=== PATIENT | female | born 1950 | race Caucasian/White ===

== ENCOUNTER → 2017-03-10 | Outpatient (CLI) | payer OTHER ==
[~2017-03-10] MED LIST: ADVIN25/60 INH; ALBU1AER9 INH; CALCTAB5 PO; CHOL100010 PO; OMEP40CA41 PO; PYRI60TA2 PO; RBN1 PO
[2017-03-10 09:54] LABS: CHOLESTEROL/HDL RATIO 2.7
--- NOTE | 2017-03-16 13:56 | CODING QUERY MEDICAL NECESSITY ---
CQSUPPORTING DIAGNOSIS NEEDED A supporting diagnosis is required for the test/procedure performed on this patient in order for us to be reimbursed by the patient's insurance. Please provide a supporting diagnosis for the following test/procedure listed below next to the test name along with your signature. *If there is no additional diagnosis for this patient that would support the following test/procedure please document that below next to the test/procedure. Test(s)/Procedure(s) that require a supporting diagnosis: JAYLENE 03/10/17 BLOOD GLUCOSE TEST Provider Signature: Date: Thank you Savannah Ceja Health Information Management Once completed, please kindly fax back to [phone] For questions please call [phone]
== END | disposition home or self-care (01) ==
LOC: C.LAB1850 08:08
PROVIDERS: ATTEND Family Medicine
DX: Z13.220 Encounter for screening for lipoid disorders (principal); Z12.31 Encounter for screening mammogram for malignant neoplasm of breast

== ENCOUNTER → 2017-07-13 | Outpatient (CLI) | payer OTHER ==
--- NOTE | 2017-07-13 15:52 | MAMMOGRAPHY REPORT ---
BILATERAL DIGITAL SCREENING MAMMOGRAM WITH CAD: 07/13/2017 CLINICAL HISTORY: Routine screening. Patient has no complaints. TECHNIQUE: Bilateral CC and MLO views were obtained. Current study was also evaluated with a Comput er Aided Detection (CAD) system. COMPARISON: Comparison is made to exams dated: 07/10/2016 mammogram, 07/04/2015 mammogram, 02/16/2014 gary mogram, 01/29/2012 mammogram, and 12/19/2010 mammogram - [facility]. BREAST COMPOSITION: The tissue of both breasts is heterogeneously dense, which may obscure small mas ses. FINDINGS: There is a benign coarse calcification in the left breast. A 12 mm focal asymmetry in the upper outer quadrant of the left breast is stable in size and appearance dating back to at least 01/2007, therefore likely benign. No new suspicious mass, architectural distortion or cluster of micr ocalcifications is seen. IMPRESSION: ACR BI-RADS CATEGORY 2: BENIGN There is no mammographic evidence of malignancy. A 1 year screening mammogram is recommended. The pa tient will receive written notification of the results. Approximately 10% of breast cancers are not detected with mammography. A negative mammographic report should not delay biopsy if a clinically suggestive mass is present. Gretel Danielson M.D. ay/:07/13/2017 14:59:33 Histology Manager: Tana Gibbs, [facility] letter sent: Normal 1/2 BI-RADS Code: ACR BI-RADS Category 2: Benign
== END | disposition home or self-care (01) ==
LOC: C.MAMM 14:08
PROVIDERS: ATTEND Family Medicine
DX: Z12.31 Encounter for screening mammogram for malignant neoplasm of breast (principal)

== ENCOUNTER → 2017-07-27 | Outpatient (CLI) | payer OTHER | END | disposition home or self-care (01) | LOC: C.LAB1850 11:32 | PROVIDERS: ATTEND Family Medicine | DX: Z11.59 Encounter for screening for other viral diseases (principal) ==

== ENCOUNTER → 2017-11-05 | Outpatient (CLI) | payer OTHER ==
[~2017-11-05] MED LIST changes: +ASPI-320 PO; +CALC600T37 PO; +CHOLTAB5 PO; +CLC100 PO; +FRRG PO; +RXC5 PO
== END | disposition home or self-care (01) ==
LOC: C.LAB1850 14:16
PROVIDERS: ATTEND Internal Medicine Rheumatology
DX: M85.80 Other specified disorders of bone density and structure, unspecified site (principal); E55.9 Vitamin D deficiency, unspecified; E61.8 Deficiency of other specified nutrient elements

== ENCOUNTER 2017-12-06 19:20 | Inpatient (IN) | payer OTHER ==
[~2017-12-06] VITALS: Ht 162.6 cm; Wt 59.9 kg
[~2017-12-06 19:20] MED LIST changes: -ASPI-320 PO; -CALC600T37 PO; -CHOLTAB5 PO; -CLC100 PO; -FRRG PO; -RXC5 PO
[2017-12-06] MEDS ORDERED: ONDANSETRON INJ 2 MG/ML 2 ML VIAL IV STA (19:30)
[2017-12-06] MEDS ORDERED: MoRPHine SULFATE 2 MG/ML CARP IV STA (19:30)
[2017-12-06] MEDS ORDERED: FENTANYL CITRATE INJ 50 MCG/1 ML 2 ML VIAL ONE (20:06)
[2017-12-06 20:12] LABS: BASO % 0.3 %; BASO ABS # 0.03 K/uL (0-0.2); EOS % 1.2 %; EOS ABS # 0.12 K/uL (0-0.5); HEMATOCRIT 39.1 % (37-47); HEMOGLOBIN 13.2 g/dL (12.0-16.0); IG# 0.05 K/uL (0.00-0.02); LYMPH ABS # 1.84 K/uL (1.2-3.4); MEAN CELL VOLUME 84.6 fL (80-100); MEAN CORPUSCULAR HEMOGLOBIN 28.6 pg (25-34); MEAN CORPUSCULAR HGB CONC 33.8 g/dl (32-36); MEAN PLATELET VOLUME 9.2 fL (7.4-10.4); MONO % 5.6 %; MONO ABS # 0.54 K/uL (0.11-0.59); NEUT % 73.4 %; PLATELET COUNT 338 K/uL (130-400); RED CELL DISTRIBUTION WIDTH CV 16.1 % (11.5-14.5); RED CELL DISTRIBUTION WIDTH SD 49.7 fL (36.4-46.3); WHITE BLOOD COUNT 9.68 K/uL (4.8-10.8)
[2017-12-06 20:28] LABS: CALCIUM 8.8 mg/dl (8.5-10.1); CREATININE 0.78 mg/dl (0.60-1.20); POTASSIUM 3.7 mmol/L (3.5-5.1); PTT PATIENT 23.7 SECONDS (21.0-31.0)
[2017-12-06] MEDS ORDERED: CALC600T37 PO (20:48)
[2017-12-06] MEDS ORDERED: CHOLTAB5 PO (20:48)
--- NOTE | 2017-12-06 20:58 | DIAGNOSTIC IMAGING REPORT ---
CHEST ONE VIEW PORTABLE CLINICAL HISTORY: 67 years-old Female presenting with hip fx. TECHNIQUE: Portable upright AP view of the chest was obtained. COMPARISON: 10/06/2013. FINDINGS: Atherosclerosis of aortic arch. Cardiac silhouette mildly enlarged. Mild pulmonary vascular prominence. The main pulmonary artery is also enlarged suggesting pulmonary hypertension. Lungs and pleural spaces clear. Right shoulder arthroplasty. Degenerative changes of the left shoulder. Osteopenia likely present. Upper abdomen normal. IMPRESSION: 1. Mild cardiomegaly with evidence of volume overload. No marilee pulmonary edema. 2. Possible pulmonary hypertension. Electronically signed by: Nathan Cantu M.D. 12/06/2017 8:57 PM Dictated Date/Time: 12/06/2017 8:55 PM
--- NOTE | 2017-12-06 21:02 | DIAGNOSTIC IMAGING REPORT ---
L PELVIS/UNILATERAL HIP 2-3VIEWS CLINICAL HISTORY: 67 years-old Female presenting with eval for fx. TECHNIQUE: Single frontal view of the pelvis and frontal and cross table lateral views of the left hip were obtained. COMPARISON: None. FINDINGS: Displaced, angulated transcervical fracture of the left femoral neck. There is significant foreshortening at the fracture site with and nearly 3 cm of proximal displacement of the distal fracture fragment. There is angulation. The femoral head remains congruent in the hip joint. Osteopenia. Remaining bony pelvis and right hip joint intact. IMPRESSION: Displaced, angulated, and foreshortened transcervical fracture of the left femoral neck. Electronically signed by: Nathan Cantu M.D. 12/06/2017 9:00 PM Dictated Date/Time: 12/06/2017 8:57 PM
[2017-12-06] MEDS ORDERED: FENTANYL CITRATE INJ 50 MCG/1 ML 2 ML VIAL IV STA (21:03)
--- NOTE | 2017-12-06 22:27 | EMERGENCY ROOM VISIT NOTE ---
History Report prepared by Melinda: Rachell Westfall Under the Supervision of: Dr. Felipe Enamorado M.D. First contact with patient: 19:23 Chief Complaint: HIP PAIN Stated Complaint: FALL History of Present Illness The patient is a 67 year old female who presents to the Emergency Room with complaints of an episode of fall [employer]. The patient was shoveling snow when she stepped on a frozen puddle and fell. She landed on her left hip. She has sharp pain in her left hip which is worse with moving. She cannot bear weight on her left hip. She can feel her toes and move her legs. She denies any head injury. She denies any SOB, neck pain, back pain, or abdominal pain. She has a history of myasthenia gravis. 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 Review of Systems See HPI for pertinent positives & negatives. A total of 10 systems reviewed and were otherwise negative. Past Medical & Surgical Medical Problems: (1) Age-Related Osteoporosis W/O Current Pathological Fracture (2) Asthma, Unspecified (3) Diverticulosis Colon (W/O Ment Of Hemorrhage) (4) Esophageal Reflux (5) Hyperlipidemia Nec/Nos (6) Myasthenia Gravis W/O (Acute) Exacerbation Surgical Problems: (1) History of total abdominal hysterectomy (2) Knee Joint Replacement Status Social History Problems: (1) Vitamin D Deficiency, Unspecified Family History Cancer Heart disease Social History Smoking Status: Former Smoker Alcohol Use: none Marital Status: single Occupation Status: retired Current/Historical Medications Scheduled Calcium (Calcium), 600 MG PO TID Cholecalciferol (D-1000), 1,000 INTER.UNIT PO MWF Fluticasone Prop/Salmeterol (Advair Diskus 250/50 60 Dose), 1 PUFF INH DAILY Glycopyrrolate (Glycopyrrolate), 1 MG PO 4XWK Pyridostigmine [place] (Mestinon), 180 MG PO Q4H Scheduled PRN Albuterol Sulfate (Proair Hfa), 2 PUFFS INH Q4H PRN for SOB/Wheezing Allergies Coded Allergies: Cortisone (Unverified Allergy, Mild, UNSURE, 12/06/17) Morphine (Unverified Allergy, Unknown, UNKNOWN, 12/06/17) Naproxen (Unverified Allergy, Unknown, INTENSE ITCHING, 12/06/17) Quinine (Unverified Allergy, Unknown, UNKNOWN -RELATEDTO MEDS FOR MYASTHENIA GRAVIS, 12/06/17) Physical Exam Vital Signs Date Time Temp Pulse Resp B/P (MAP) Pulse Ox O2 Delivery O2 Flow Rate FiO2 12/06/17 20:29 73 12/06/17 19:22 36.5 52 18 164/79 99 Room Air Physical Exam Constitutional: Vital signs reviewed. Eyes: Pupils are equal round reactive to light. Conjunctiva are noninjected. ENT: Pharynx is clear without erythema or exudate. Mucous membranes are moist. Neck supple without meningeal signs. Respiratory: Clear to auscultation bilaterally. Breath sounds are equal bilaterally. Cardiovascular: Regular rate and rhythm. No rubs or gallops. GI: Soft, nondistended and nontender. Bowel sounds are present. Musculoskeletal: No midline tenderness to the cervical, thoracic, or lumbosacral spine. Mild left hip tenderness. Shortening. Normal distal pulse. Integumentary: No cyanosis. Neurological: The patient is awake and alert. No focal deficits. Psychiatric: Normal affect. Medical Decision & Procedures ER Provider Diagnostic Interpretation: X-ray results as stated below per interpretation by me and the radiologist: CHEST ONE VIEW PORTABLE CLINICAL HISTORY: 67 years-old Female presenting with hip fx. TECHNIQUE: Portable upright AP view of the chest was obtained. COMPARISON: 10/06/2013. FINDINGS: Atherosclerosis of aortic arch. Cardiac silhouette mildly enlarged. Mild pulmonary vascular prominence. The main pulmonary artery is also enlarged suggesting pulmonary hypertension. Lungs and pleural spaces clear. Right shoulder arthroplasty. Degenerative changes of the left shoulder. Osteopenia likely present. Upper abdomen normal. IMPRESSION: 1. Mild cardiomegaly with evidence of volume overload. No marilee pulmonary edema. 2. Possible pulmonary hypertension. Electronically signed by: Nathan Cantu M.D. 12/06/2017 8:57 PM Dictated Date/Time: 12/06/2017 8:55 PM L PELVIS/UNILATERAL HIP 2-3VIEWS CLINICAL HISTORY: 67 years-old Female presenting with eval for fx. TECHNIQUE: Single frontal view of the pelvis and frontal and cross table lateral views of the left hip were obtained. COMPARISON: None. FINDINGS: Displaced, angulated transcervical fracture of the left femoral neck. There is significant foreshortening at the fracture site with and nearly 3 cm of proximal displacement of the distal fracture fragment. There is angulation. The femoral head remains congruent in the hip joint. Osteopenia. Remaining bony pelvis and right hip joint intact. IMPRESSION: Displaced, angulated, and foreshortened transcervical fracture of the left femoral neck. Electronically signed by: Nathan Cantu M.D. 12/06/2017 9:00 PM Dictated Date/Time: 12/06/2017 8:57 PM Laboratory Results 12/06/17 19:56 Red Blood Count 4.62, Mean Corpuscular Volume 84.6, Mean Corpuscular Hemoglobin 28.6, Mean Corpuscular Hemoglobin Concent 33.8, Mean Platelet Volume 9.2, Neutrophils (%) (Auto) 73.4, Lymphocytes (%) (Auto) 19.0, Monocytes (%) (Auto) 5.6, Eosinophils (%) (Auto) 1.2, Basophils (%) (Auto) 0.3, Neutrophils # (Auto) 7.10, Lymphocytes # (Auto) 1.84, Monocytes # (Auto) 0.54, Eosinophils # (Auto) 0.12, Basophils # (Auto) 0.03 12/06/17 19:56 Test 12/06/17 19:56 12/06/17 21:45 White Blood Count 9.68 K/uL (4.8-10.8) Red Blood Count 4.62 M/uL (4.2-5.4) Hemoglobin 13.2 g/dL (12.0-16.0) Hematocrit 39.1 % (37-47) Mean Corpuscular Volume 84.6 fL (80-100) Mean Corpuscular Hemoglobin 28.6 pg (25-34) Mean Corpuscular Hemoglobin Concent 33.8 g/dl (32-36) Platelet Count 338 K/uL (130-400) Mean Platelet Volume 9.2 fL (7.4-10.4) Neutrophils (%) (Auto) 73.4 % Lymphocytes (%) (Auto) 19.0 % Monocytes (%) (Auto) 5.6 % Eosinophils (%) (Auto) 1.2 % Basophils (%) (Auto) 0.3 % Neutrophils # (Auto) 7.10 K/uL (1.4-6.5) Lymphocytes # (Auto) 1.84 K/uL (1.2-3.4) Monocytes # (Auto) 0.54 K/uL (0.11-0.59) Eosinophils # (Auto) 0.12 K/uL (0-0.5) Basophils # (Auto) 0.03 K/uL (0-0.2) RDW Standard Deviation 49.7 fL (36.4-46.3) RDW Coefficient of Variation 16.1 % (11.5-14.5) Immature Granulocyte % (Auto) 0.5 % Immature Granulocyte # (Auto) 0.05 K/uL (0.00-0.02) Prothrombin Time 10.5 SECONDS (9.0-12.0) Prothromb Time International Ratio 1.0 (0.9-1.1) Activated Partial Thromboplast Time 23.7 SECONDS (21.0-31.0) Partial Thromboplastin Ratio 0.9 Anion Gap 4.0 mmol/L (3-11) Est Creatinine Clear Calc Drug Dose 57.0 ml/min Estimated GFR () 89.9 Estimated GFR (Non- 77.6 BUN/Creatinine Ratio 23.3 (10-20) Calcium Level 8.8 mg/dl (8.5-10.1) Laboratory results as reviewed by me. Medications Administered Medications (Trade) Dose Ordered Sig/Jacky Route Start Time Stop Time Status Last Admin Dose Admin Ondansetron HCl (Zofran Inj) 4 mg NOW STAT IV 12/06/17 19:30 12/06/17 19:32 DC 12/06/17 19:53 4 MG Fentanyl Citrate (Fentanyl Inj) 100 mcg STK-MED ONCE .ROUTE 12/06/17 20:06 12/06/17 20:07 DC 12/06/17 20:10 50 MCG Fentanyl Citrate (Fentanyl Inj) 50 mcg NOW STAT IV 12/06/17 21:03 12/06/17 21:04 DC 12/06/17 21:13 50 MCG ECG Indication: other (hip/pelvic fracture) Rate (beats per minute): 66 Rhythm: normal sinus Findings: T-wave inversion (lead 3), no acute ischemic change, no ectopy Change: Patient's electrocardiogram per my interpretation. ED Course 1923: The patient was evaluated in room B2. A complete history and physical exam was performed. 1929: Zofran Inj 4 mg IV. 2005: Fentanyl Citrate 50 mcg IV. 2057: I reevaluated the patient. I discussed the test results with her and her daughter. They verbalized agreement of the treatment plan. She will be evaluated for further management. 2102: Fentanyl Citrate 50 mcg IV. 2112: I discussed the patient's case with Dr. Mccartney, [facility] [place]. He recommends 5lbs of Flathead traction. 2148: I discussed the patient's case with CRISTIANA Jefferson hospitalist. He will evaluate the patient for further management. Medical Decision This is a 67-year-old female who presents with hip pain after a fall. Differential diagnosis includes pelvic fracture, hip fracture, contusion, dislocation, strain. I did perform a limited focused review of portions of the patient's old chart on the electronic medical record. The patient has had no recent pertinent visits to this hospital. I did evaluate the patient as noted above. The patient is presenting with left hip pain after fall. Clinically she does appear to have a left hip fracture. IV access was established. The patient was placed on a continuous hairspring truer. I did treat the patient with fentanyl and Zofran IV. I did order and personally review the patient's 12-lead EKG and pelvis/hips/chest x-ray as described above. She does have a femoral neck fracture. I did order and review the patient's blood work as noted in the electronic medical record. I did discuss the test results with the patient. I did discuss the case with Dr. Mccartney of orthopedics who recommended 5 pounds of Salcido's traction. I did discuss case with the hospitalist and case mgr. She was given additional IV fentanyl for pain control. Medication Reconcilliation Current Medication List: was personally reviewed by me Blood Pressure Screening Patient's blood pressure: Elevated blood pressure Blood pressure disposition: Referred to PCP Consults Time Called: 2102 Consulting Physician: Dr. Mccartney, [facility] [place] Returned Call: [phone] I discussed the patient's case with him. He recommends 5lbs of Flathead traction. Additional Consults: Time Called: 2102 Consulted Physician: Dr. CRISTIANA Lambert hospitalist Returned Call: 2031 Additional Comments: I discussed the patient's case with him. He will evaluate the patient for further management. Impression Primary Impression: Displaced fracture of left femoral neck Scribe Attestation The scribe's documentation has been prepared under my direct and personally reviewed by me in its entirety. I confirm that the note above accurately reflects all work, treatment, procedures, and medical decision making performed by me. Departure Information Dispostion Being Evaluated By Hospitalist Referrals Melissa Giron MD (PCP) Patient Instructions [facility]
[2017-12-06] MEDS ORDERED: ONDANSETRON INJ 2 MG/ML 2 ML VIAL IV PRN (22:30)
[2017-12-06] MEDS ORDERED: ALBUTEROL 0.083% NEBU SOLN 3 ML VIAL INH PRN (22:30)
[2017-12-06] MEDS ORDERED: NALOXONE HCL 0.4 MG/1 ML VIAL/CARP IV PRN (22:30)
[2017-12-06] MEDS ORDERED: ALBUTEROL HFA 8 GM INHALER INH PRN (22:30)
[2017-12-06] MEDS ORDERED: SOD PHOSPHATE/SOD BIPHOSPHATE ENEMA 132 ML BTL PR PRN (22:30)
[2017-12-06] MEDS ORDERED: ACETAMINOPHEN 325 MG TAB PO PRN (22:30)
[2017-12-06] MEDS ORDERED: MAGNESIUM HYDROXIDE SUSP 30 ML UDC PO PRN (22:30)
[2017-12-06] MEDS ORDERED: BISACODYL 10 MG SUPP PR PRN (22:30)
--- NOTE | 2017-12-06 23:20 | Progress Note ---
Progress Note Date of Service Dec 06, 2017. Progress Note Patient is a 64 year old F who sustained a fall and L hip fracture likely requiring operative management. Medical history is remarkable for myasthenia gravis diagnosed at age 10. Her subtype is primarily effecting her upper extremities which have severe wasting and weakness bilaterally. She walks without assistance and has good cardiopulmonary functional capacity. She tolerated a general anesthetic approximately 10 years ago for R TSA at [facility] , although it is unclear whether or not she remained intubated overnight. The patient is not on steroids, but does take Mestinon every 4h while awake. The remainder of her history is significant for well controlled asthma and zenker's diverticulum from which she experiences frequent regurgitation. Labs and studies were reviewed. Her airway exam is reassuring. Physical exam remarkable for severely wasting and joint deformity in the upper extremities. I spoke with the patient regarding her risk of post op respiratory failure. She appears to be a spinal anesthesia candidate and she would strongly prefer this modality of anesthetic. She would probably be best suited for ICU observation overnight. Questions were answered and she did sign anesthetic consent. Of note, the patient would like us to call her neurologist Dr Darnell Frausto who heads the myasthenia gravis clinic at [facility] ([phone]). I did tell the patient that we would be happy to attempt to contact him tomorrow, but that I did not feel it would change her management and I did not recommend we delay operative management if he is not available. She understands and agrees to this plan. Please see that the patient continues to take her Mestinon as scheduled throughout the perioperative period. Thank you for the consultation.
--- NOTE | 2017-12-06 23:31 | History and Physical ---
History & Physical Date & Time of Service: Dec 06, 2017 at 21:49 Chief Complaint: FALL Primary Care Physician: Melissa Giron MD History of Present Illness Source: patient 67yo female with history of myasthenia gravis who presents with left hip pain after sustaining a fall about 1830 this evening. She was shoveling her driveway, hit a patch of ice, and fell to the ground striking the left hip. She also hit her left elbow. Denies any loss of consciousness or head injury, no dizziness, no chest pain or shortness of breath prior to the event. Past Medical/Surgical History PMH: 1. osteopenia 2. myasthenia gravis - dx 1959 at the [facility], s/p thymectomy; followed at [facility] - Dr. Darnell Frausto 3. cervical cancer 4. asthma 5. zenker's diverticulum PSH: 1. thymectomy 2. RITU/BSO due to cervical cancer - 1989 3. right shoulder replacement - 2009 ([facility]) 4. b/l TKR - Dr. 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[employer], other jobs) Immunizations History of Influenza Vaccine: Yes History of Tetanus Vaccine?: Yes History of Pneumococcal: Yes Pneumococcal Date: Nov 10, 2013 History of Hepatitis B Vaccine: No Multi-Drug Resistant Organisms History of MDRO: No Allergies Coded Allergies: Cortisone (Unverified Allergy, Mild, UNSURE, 12/06/17) Morphine (Unverified Allergy, Unknown, UNKNOWN, 12/06/17) Naproxen (Unverified Allergy, Unknown, INTENSE ITCHING, 12/06/17) Quinine (Unverified Allergy, Unknown, UNKNOWN -RELATEDTO MEDS FOR MYASTHENIA GRAVIS, 12/06/17) Home Medications Scheduled Calcium (Calcium), 600 MG PO TID Cholecalciferol (D-1000), 1,000 INTER.UNIT PO MWF Fluticasone Prop/Salmeterol (Advair Diskus 250/50 60 Dose), 1 PUFF INH DAILY Glycopyrrolate (Glycopyrrolate), 1 MG PO 4XWK Pyridostigmine [place] (Mestinon), 180 MG PO Q4H Scheduled PRN Albuterol Sulfate (Proair Hfa), 2 PUFFS INH Q4H PRN for SOB/Wheezing Review of Systems Constitutional: No fever, No chills, No weight loss, No fatigue Eyes: No worsening of vision ENT: + trouble swallowing, No nasal symptoms, No sore throat Respiratory: No cough, No sputum, No wheezing, No shortness of breath, No dyspnea on exertion, No hemoptysis Cardiovascular: No chest pain, No orthopnea, No PND, No edema Abdomen: + diarrhea (chronic ), No pain, No vomiting, No GI bleeding Musculoskeletal: + joint pain (left shoulder, other locations) Genitourinary - Female: No dysuria, No hematuria Neurologic: + weakness (upper extremities - chronic, due to myasthenia), No numbness/tingling Psychiatric: No depression symptoms, No anxiety Endocrine: No excessive thirst Hematologic / Lymphatic: No abnormal bleeding/bruising Integumentary: No rash Physical Exam Vital Signs Date Time Temp Pulse Resp B/P (MAP) Pulse Ox O2 Delivery O2 Flow Rate FiO2 12/06/17 20:29 73 12/06/17 19:22 36.5 52 18 164/79 99 Room Air General Appearance: no apparent distress, + thin Head: normocephalic, atraumatic Eyes: PERRL (pinpoint pupils), sclerae normal ENT: TMs normal, pharynx normal Neck: supple, no adenopathy, no JVD, no carotid bruits, + thyroid abnormalities (right upper lobe nodule, at least 1cm in size) Respiratory/Chest: lungs clear, no respiratory distress, no accessory muscle use, + pertinent finding (scar present upper chest) Cardiovascular: regular rate, rhythm, no murmur, normal peripheral pulses, + extra beats, + pertinent finding (mid-systolic click mid left sternal border?) Abdomen/GI: normal bowel sounds, non tender, soft, no organomegaly Back: normal inspection Extremities/Musculoskelatal: no pedal edema, + pertinent finding (left leg is shortened, externally rotated, and flexed) Neurologic/Psych: alert, oriented x 3, + pertinent finding (atrophy of most muscles of both arms, legs with normal bulk; strength upper arms nearly 4-5/5; RLE 5/5) Skin: no rash, + pertinent finding (abrasion, left elbow) Lymphatic: no adenopathy (no cervical lymphadenopathy) Diagnostics Laboratory Results Results Past 24 Hours Test 12/06/17 19:56 12/06/17 21:45 Range/Units White Blood Count 9.68 4.8-10.8 K/uL Red Blood Count 4.62 4.2-5.4 M/uL Hemoglobin 13.2 12.0-16.0 g/dL Hematocrit 39.1 37-47 % Mean Corpuscular Volume 84.6 80-100 fL Mean Corpuscular Hemoglobin 28.6 25-34 pg Mean Corpuscular Hemoglobin Concent 33.8 32-36 g/dl Platelet Count 338 130-400 K/uL Mean Platelet Volume 9.2 7.4-10.4 fL Neutrophils (%) (Auto) 73.4 % Lymphocytes (%) (Auto) 19.0 % Monocytes (%) (Auto) 5.6 % Eosinophils (%) (Auto) 1.2 % Basophils (%) (Auto) 0.3 % Neutrophils # (Auto) 7.10 1.4-6.5 K/uL Lymphocytes # (Auto) 1.84 1.2-3.4 K/uL Monocytes # (Auto) 0.54 0.11-0.59 K/uL Eosinophils # (Auto) 0.12 0-0.5 K/uL Basophils # (Auto) 0.03 0-0.2 K/uL RDW Standard Deviation 49.7 36.4-46.3 fL RDW Coefficient of Variation 16.1 11.5-14.5 % Immature Granulocyte % (Auto) 0.5 % Immature Granulocyte # (Auto) 0.05 0.00-0.02 K/uL Prothrombin Time 10.5 9.0-12.0 SECONDS Prothromb Time International Ratio 1.0 0.9-1.1 Activated Partial Thromboplast Time 23.7 21.0-31.0 SECONDS Partial Thromboplastin Ratio 0.9 Sodium Level 138 136-145 mmol/L Potassium Level 3.7 3.5-5.1 mmol/L Chloride Level 110 98-107 mmol/L Carbon Dioxide Level 24 21-32 mmol/L Anion Gap 4.0 3-11 mmol/L Blood Urea Nitrogen 18 7-18 mg/dl Creatinine 0.78 0.60-1.20 mg/dl Est Creatinine Clear Calc Drug Dose 57.0 ml/min Estimated GFR () 89.9 Estimated GFR (Non- 77.6 BUN/Creatinine Ratio 23.3 10-20 Random Glucose 133 70-99 mg/dl Calcium Level 8.8 8.5-10.1 mg/dl Diagnostic Radiology cxr: IMPRESSION: 1. Mild cardiomegaly with evidence of volume overload. No marilee pulmonary edema. 2. Possible pulmonary hypertension. Hip x-ray: IMPRESSION: Displaced, angulated, and foreshortened transcervical fracture of the left femoral neck. EKG EKG - my reading - NSR borderline LVH by voltage criteria minimal nonspecific ST change III only otherwise no ST changes Impression Assessment and Plan 67yo female with history of long-standing, well-controlled myasthenia gravis, asthma, and osteopenia presenting with a left hip fracture after suffering a fall earlier this evening. She was shoveling snow and simply slipped on ice. There was NO prodromal dizziness, lightheadedness, chest pain, etc. 1. left hip fracture - * I have formally consulted anesthesiology due to her myasthenia gravis and high risk for perioperative complications due to the myasthenia * patient's neurologist is located at [facility] (Dr. Darnell Frausto) * NPO after MN for likely repair tomorrow; Dr. Mccartney consulted; he asked the ER attending to place the patient in 5# of Salcido's traction * from a cardiopulmonary standpoint the patient has NO limiting cardiopulmonary symptoms outside of the hospital; she leads an active lifestyle with no chest pain, dyspnea, etc. Although the cxr report suggest "volume overload" she has no symptoms/signs of CHF at this time * her asthma is well-controlled as well * from a cardiopulmonary standpoint I believe patient is optimized * continue q4h while awake mestinon for her myasthenia gravis * pain control, enriquez cath, IVF, check vit D level in the am 2. myasthenia gravis - see discussion above. Continue outpatient regimen of mestinon q4h while awake. 3. extra beats - the patient had frequent PVCs on exam during my assessment. Doubt an arrhythmia that led to her fall but will place on telemetry as a precautionary measure, especially in light of her myasthenia gravis and higher risk for perioperative complications. 4. thyroid nodule - outpatient f/u advised. 5. asthma - controlled. Cont advair + albuterol prn. 6. hyperglycemia - check hemoglobin a1c in the AM. 7. DVT proph - SCDs overnight, then chemical means per ortho following her surgery. 8. elevated BP w/o dx of HTN - likely due to pain; follow. 9. osteopenia - check vitamin D level in am. Followed by Dr. Coombs, rheumatology, for this. 10. FEN - NPO after MN tonight, BMP in am, mag in am, regular diet until midnight. IVF until the OR. Level of Care Telemetry Resuscitation Status FULL RESUSCITATION VTE Prophylaxis Risk Level: High Given or contraindicated: SCD's Note total time about 70 min Additional Copies To Melissa Giron MD
[2017-12-06 23:50] VITALS: BP 162/84; PULSE 72; TEMP 36.8; O2SAT 94; BMI 20.4
[2017-12-07] VITALS (9 sets, daily range): BP systolic 105–145; BP diastolic 61–76; PULSE 61–75; TEMP 36.9–37.7; O2SAT 92–100; Ht 162.6 cm; Wt 59.9 kg
[2017-12-07] MEDS: OXYCODONE HCL IR 5 MG TAB (IMMEDIATE RELEASE) PO PRN ×4 (00:17→11:59)
[2017-12-07] MEDS: D5W AND NSS 1,000 ML IV SCH ×3 (00:19→23:19)
[2017-12-07] MEDS ORDERED: CEFAZOLIN 2000MG IV PUSH 15 ML IV SCH (06:00)
--- NOTE | 2017-12-07 06:40 | DIAGNOSTIC IMAGING REPORT ---
L ELBOW 2 VIEWS HISTORY: 67 years-old Female fall, s/p trauma to left elbow, eval for fracture acute left elbow pain status post fall COMPARISON: None available TECHNIQUE: 2 views of the left elbow FINDINGS: 1.6 cm corticated bone fragment is seen anterior to the distal humeral metaphysis. Lateral view is limited secondary to patient positioning with rotation. The bones appear mildly demineralized. Moderate degenerative changes are noted about the elbow with joint space narrowing, subchondral sclerosis, cystic change and marginal spurring. Mild/moderate soft tissue swelling. Evaluation for joint effusion is limited secondary to positioning. No definite acute fracture or subluxation identified. IMPRESSION: 1. Limited study secondary to patient positioning. No definite acute fracture or subluxation identified. 2. [id number] soft tissue swelling. 3. Moderate degenerative changes about the elbow with 1.6 cm corticated bone fragment volar to the distal humeral metaphysis suggesting loose body within the joint space. The above report was generated using voice recognition software. It may contain grammatical, syntax or spelling errors. Electronically signed by: León Hickman M.D. 12/07/2017 6:38 AM Dictated Date/Time: 12/07/2017 6:35 AM
[2017-12-07 07:21] LABS: CALCIUM 7.8 mg/dl (8.5-10.1); CREATININE 0.63 mg/dl (0.60-1.20); POTASSIUM 3.8 mmol/L (3.5-5.1)
[2017-12-07] MEDS: CHOLECALCIFEROL 1000 INTER.UNIT TAB PO SCH (08:34)
[2017-12-07] MEDS: CALCIUM CARBONATE 500 MG CHEWABLE PO SCH ×3 (08:34→20:40)
[2017-12-07] MEDS: PYRIDOSTIGMINE BROMIDE 60 MG TAB PO SCH ×4 (08:35→20:00)
[2017-12-07] MEDS: FLUTICASONE/SALMETEROL 250/50 (ADVAIR) 14 PUFF/1 INHALER INH SCH (08:35)
[2017-12-07] MEDS: GLYCOPYRROLATE 1 MG TAB PO SCH (08:37)
[2017-12-07] MEDS: POLYETHYLENE (MIRALAX) 17 GM PACK PO SCH (09:00)
[2017-12-07] MEDS ORDERED: POVIDONE-IODINE OP SOLN 30 ML BTL ONE (15:08)
[2017-12-07] MEDS ORDERED: BACITRACIN 50000 UNIT VIAL ONE (15:08)
[2017-12-07] MEDS ORDERED: PROPOFOL IV EMULSION 10 MG/ML 20 ML VIAL IV ONE ×3 (15:21→17:30)
[2017-12-07] MEDS ORDERED: LIDOCAINE HCL 2% 2 ML VIAL (20MG/ML) ONE (15:21)
[2017-12-07] MEDS ORDERED: FENTANYL CITRATE INJ 50 MCG/1 ML 2 ML VIAL ONE (15:21)
[2017-12-07] MEDS ORDERED: MIDAZOLAM HCL 1 MG/ML 2ML VIAL ONE (15:21)
--- NOTE | 2017-12-07 15:32 | History & Physical Bridge Note ---
H&P Re-Evaluation Bridge Note: I have examined the patient, reviewed the History & Physical and in the interval since the performance of the History & Physical I have noted the following changes of clinical significance: No changes noted
[2017-12-07] MEDS ORDERED: NURSING VERBAL MED ORDER ONE (16:00)
[2017-12-07] MEDS ORDERED: PHENYLEPHRINE 100MCG/ML 5ML SYR ONE (16:54)
[2017-12-07] MEDS ORDERED: EpHEDrine SULFATE 50MG/5ML SYR ONE (16:54)
--- NOTE | 2017-12-07 17:32 | Progress Note ---
Subjective Date of Service: Dec 07, 2017. Subjective Pt evaluation today including: conversation w/ patient, physical exam, chart review, lab review, review of inpatient medication list feeling ok except for hip notes myesthenia going well has had for decades no other complaints no other problems Problem List Medical Problems: (1) Displaced fracture of left femoral neck Status: Acute Review of Systems all other ROS otherwise negative except for as above Objective Vital Signs Date Time Temp Pulse Resp B/P (MAP) Pulse Ox O2 Delivery O2 Flow Rate FiO2 12/07/17 12:00 37.2 63 18 145/76 (99) 96 Room Air 12/07/17 12:00 Room Air 12/07/17 08:00 Room Air 12/07/17 07:44 37.0 61 20 115/66 (82) 94 Room Air 12/07/17 04:45 37.2 12/07/17 04:00 Room Air 12/07/17 04:00 37.7 65 20 112/72 (85) 94 Room Air 12/06/17 23:50 36.8 72 18 162/84 94 Room Air 12/06/17 22:56 81 20 140/98 96 12/06/17 22:50 81 20 140/98 96 Room Air 12/06/17 21:50 70 20 168/85 95 Room Air 12/06/17 20:29 73 12/06/17 19:22 36.5 52 18 164/79 99 Room Air Physical Exam General Appearance: no apparent distress Eyes: EOMI ENT: hearing grossly normal Neck: trachea midline Respiratory/Chest: no respiratory distress, no accessory muscle use Extremities: normal range of motion Neurologic/Psychiatric: sample card maker II-XII nml as tested, alert, normal mood/affect Skin: normal color, warm/dry Laboratory Results Last 24 Hours Test 12/06/17 19:56 12/06/17 21:45 12/07/17 06:21 White Blood Count 9.68 K/uL Red Blood Count 4.62 M/uL Hemoglobin 13.2 g/dL Hematocrit 39.1 % Mean Corpuscular Volume 84.6 fL Mean Corpuscular Hemoglobin 28.6 pg Mean Corpuscular Hemoglobin Concent 33.8 g/dl Platelet Count 338 K/uL Mean Platelet Volume 9.2 fL Neutrophils (%) (Auto) 73.4 % Lymphocytes (%) (Auto) 19.0 % Monocytes (%) (Auto) 5.6 % Eosinophils (%) (Auto) 1.2 % Basophils (%) (Auto) 0.3 % Neutrophils # (Auto) 7.10 K/uL Lymphocytes # (Auto) 1.84 K/uL Monocytes # (Auto) 0.54 K/uL Eosinophils # (Auto) 0.12 K/uL Basophils # (Auto) 0.03 K/uL RDW Standard Deviation 49.7 fL RDW Coefficient of Variation 16.1 % Immature Granulocyte % (Auto) 0.5 % Immature Granulocyte # (Auto) 0.05 K/uL Prothrombin Time 10.5 SECONDS Prothromb Time International Ratio 1.0 Activated Partial Thromboplast Time 23.7 SECONDS Partial Thromboplastin Ratio 0.9 Sodium Level 138 mmol/L 137 mmol/L Potassium Level 3.7 mmol/L 3.8 mmol/L Chloride Level 110 mmol/L 110 mmol/L Carbon Dioxide Level 24 mmol/L 25 mmol/L Anion Gap 4.0 mmol/L 2.0 mmol/L Blood Urea Nitrogen 18 mg/dl 13 mg/dl Creatinine 0.78 mg/dl 0.63 mg/dl Est Creatinine Clear Calc Drug Dose 57.0 ml/min 72.8 ml/min Estimated GFR () 89.9 106.1 Estimated GFR (Non- 77.6 91.5 BUN/Creatinine Ratio 23.3 21.3 Random Glucose 133 mg/dl 125 mg/dl Calcium Level 8.8 mg/dl 7.8 mg/dl Urine Color YELLOW Urine Appearance CLEAR Urine pH 5.0 Urine Specific [place] 1.028 Urine Protein NEG Urine Glucose (UA) NEG Urine Ketones TRACE Urine Occult Blood NEG Urine Nitrite NEG Urine Bilirubin NEG Urine Urobilinogen NEG Urine Leukocyte Esterase NEG Estimated Average Glucose 126 mg/dl Hemoglobin A1c 6.0 % Magnesium Level 1.9 mg/dl 25-Hydroxy Vitamin D Total 38.0 ng/ml Assessment and Plan 1. left hip fracture related to osteopenia - for OR from a cardiopulmonary standpoint the patient has NO limiting cardiopulmonary symptoms outside of the hospital; she leads an active lifestyle with no chest pain, dyspnea, etc. Although the cxr report suggest "volume overload" she has no symptoms/signs of CHF at this time, medically acceptable for OR her asthma is well-controlled as well continue q4h while awake mestinon for her myasthenia gravis pain control, enriquez cath, IVF, vitamin D reasonable 2. myasthenia gravis - continue outpatient regimen of mestinon q4h while awake. 3. extra beats - appearing to be ectopy 4. thyroid nodule - outpatient f/u advised. 5. asthma - controlled. Cont advair + albuterol prn. no sx 6. hyperglycemia - A1c 6.0 7. DVT proph - SCDs overnight, then chemical means per ortho following her surgery. 8. elevated BP w/o dx of HTN - likely due to pain; follow. 9. osteopenia - vitamin D reasonable. Followed by Dr. Coombs, rheumatology, for this.
[2017-12-07] MEDS ORDERED: EpHEDrine SULFATE INJ 50 MG/ML AMP ONE (17:53)
--- NOTE | 2017-12-07 19:07 | [facility] Post Operative Brief Note ---
Immediate Operative Summary Operative Date Dec 07, 2017. Pre-Operative Diagnosis fracture of the left femoral neck. Post-Operative Diagnosis fracture of the left femoral neck with comminution posterior neck Procedure(s) Performed Left Total Hip Arthroplasty,cemented stem Surgeon Dr. Jez Pitt Claims Customer Service Representative Surgeon(s) Dell Reno-PAC Estimated Blood Loss 200cc Findings Consistent with Post-Op Diagnosis Specimens A. Left femoral head bone and tissue Drains 2 hemovac Anesthesia Type Spinal MAC Complication(s) none
[2017-12-07] MEDS ORDERED: TRAMADOL HCL 50 MG TAB PO PRN (19:30)
[2017-12-07] MEDS ORDERED: FENTANYL CITRATE INJ 50 MCG/1 ML 2 ML VIAL IV PRN (19:30)
[2017-12-07] MEDS ORDERED: EpHEDrine SULFATE INJ 50 MG/ML AMP IV PRN (19:30)
[2017-12-07] MEDS ORDERED: ATROPINE SULFATE 0.1 MG/ML 5ML SYR IV PRN (19:30)
[2017-12-07] MEDS ORDERED: MAGNESIUM HYDROXIDE SUSP 30 ML UDC PO PRN (19:30)
[2017-12-07] MEDS ORDERED: ONDANSETRON INJ 2 MG/ML 2 ML VIAL IV PRN ×2 (19:30)
[2017-12-07] MEDS ORDERED: HYDROmorphone INJ 0.5 MG/0.5 ML SYR IV PRN (19:30)
[2017-12-07] MEDS ORDERED: ALUMINUM/MAGNESIUM/SIMETH (MAALOX MAX) 30 ML UDC PO PRN (19:30)
--- NOTE | 2017-12-07 19:47 | DIAGNOSTIC IMAGING REPORT ---
AP PELVIS AND LEFT HIP 2 VIEWS CLINICAL HISTORY: Postop hip arthroplasty COMPARISON STUDY: No previous studies for comparison. FINDINGS: There are postsurgical changes of a total left hip arthroplasty. The femoral and acetabular components appear well seated. There is no dislocation. There is air within soft tissues consistent with recent surgery. Overlying skin kelly and surgical drains are evident. IMPRESSION: Postsurgical changes of a total left hip arthroplasty. Electronically signed by: Jeremy Stevens M.D. 12/07/2017 7:46 PM Dictated Date/Time: 12/07/2017 7:45 PM
--- NOTE | 2017-12-07 19:48 | Anesthesiology Progress Note ---
Anesthesia Post Op Note Date & Time Dec 07, 2017 at 19:45 Vital Signs Pain Intensity: 0 Vital Signs Past 12 Hours Date Time Temp Pulse Resp B/P (MAP) Pulse Ox O2 Delivery O2 Flow Rate FiO2 12/07/17 19:35 60 20 120/74 100 Nasal Cannula 2 12/07/17 19:25 60 20 136/76 97 Nasal Cannula 2 12/07/17 19:19 37.4 72 20 116/68 97 Oxymask 10 12/07/17 12:00 37.2 63 18 145/76 (99) 96 Room Air 12/07/17 12:00 Room Air 12/07/17 08:00 Room Air Notes Mental Status: alert / awake / arousable, participated in evaluation Pt Amnestic to Procedure: Yes Nausea / Vomiting: adequately controlled Pain: adequately controlled Airway Patency, RR, SpO2: stable & adequate BP & HR: stable & adequate Hydration State: stable & adequate Neuraxial Anesthesia: was administered, sensory block is resolving Anesthetic Complications: no major complications apparent Anesthetic Complications: 4PM dose of pyridostigmine was given as soon as patient was awake enough in PACU to swallow pills. Patient denies hip pain and denies recall from surgical procedure. Patient complaining of the same back pain that was present prior to OR procedure. Patient states back pain relieved by heating pads. Heating pad placed behind back and will be started when patient arrives on the floor.
--- NOTE | 2017-12-07 20:05 | OPERATIVE REPORT ---
DATE OF OPERATION: 12/07/2017 INDICATION FOR PROCEDURE: The patient is a 67-year-old female known to my practice. She has myasthenia gravis. She has had a right reverse shoulder replacement, bilateral knee replacements. She was in her usual state of health when she slipped on ice, fell and fractured her left hip. Her radiographs demonstrate that she has a femoral neck fracture in the mid neck area to a higher mid neck area. She has complete displacement of the femoral head. She does not have any significant osteoarthritis. She is a community ambulator, very active individual despite her condition. PREOPERATIVE DIAGNOSIS: Displaced left femoral neck fracture secondary to a fall. POSTOPERATIVE DIAGNOSIS: Same with comminution of the posterior neck. PROCEDURE: Left total hip arthroplasty, uncemented acetabulum and cemented stem for a fractured femoral neck. SURGEON: Jez Pitt MD. CONCESSION WORKER: NIC Bragg. ANESTHESIA: Spinal and sedation. OPERATIVE PROCEDURE: The patient was taken to the operating room, anesthetized under spinal sedation anesthetic. She was transferred to the operating room table, placed in supine position on a sacral pad. A towel was placed at this point at the lumbar spine. A foot roll was placed to allow the knee to be flexed 90 degrees and hip 60 degrees. Exam demonstrated the leg was significantly shortened and externally rotated. She is a thin individual. She had special positioning of her upper extremities due to her myasthenia and some contractures and significant atrophy of the upper arms. She has atrophy of her hands as well. Her bed was tilted in some Trendelenburg to drain the pelvic veins, tilted to the right to help expose the left hip and then the left hip was sterilely prepped and draped with ChloraPrep in usual sterile fashion. A Hardinge type lateral approach was performed to the hip. Skin was incised sharply and a moderate layer of fat was divided down to the fascia. The fascia khoa was divided longitudinally and the gluteus kareem fascia was split proximally. The patient had some thickened trochanteric bursa, which was resected. Gluteus medius muscle was noted to be intact. The medius was split between its anterior 40% and posterior 60% and the minimus was identified. The minimus was divided and reflected off the capsule. Then the capsule was divided from the rim of the acetabulum down to the greater trochanter. Then, a curvilinear incision was made through the gluteus medius tendon leaving a cuff of tissue for repair on the trochanter and the vastus lateralis was split for about 3 cm. Muscular capsular flap was elevated off the anterior hip. This revealed the femoral neck fracture. This femoral neck fracture was above the midline and there was about at the upper two-thirds of the neck. The femoral neck cut was made 15 mm proximal to the lesser trochanter. We inspected the posterior neck. The posterior neck had a V shaped fracture from the neck fragment that went down posteriorly that was attached to the head. Because of that had I had some concern that doing any kind of press-fit stem without a full calcar with some of this portion was missing posterior and medially that we could have rotational stability. So we decided we would proceed with cemented stem. The femoral head and neck fragments were then removed. The femoral head was measured at 46 mm diameter. The acetabulum was exposed by releasing some of the anterior capsule, preserving the iliopsoas attachment. A blunt Hohmann retractor was placed anteriorly. A sharp Yohana was placed superiorly and a double angled inferior ischial retractor was placed. The acetabulum had bone spurs superiorly and anteriorly and had almost a bit of a retroverted appearance to the acetabulum with more bone anteriorly and medially. The acetabular labrum was resected. Bone spurs superiorly and anteriorly were resected using a rongeur and a curved osteotome. Then the soft tissue in the acetabular fossa was resected with electrocautery. Then I used the Manuel PSL cup for the acetabulum. First reamer was a 43 mm reamer which we medialized and we achieved inner table and then went up with sequential reamers up to a 48, which had appropriate fit and fill. The trial reduction and this followed by the 48 cup which was fully seated and then this was a tight pressfit. We used 2 acetabular screws in the posterior superior quadrant, 25 mm and 60 mm. The cup was irrigated with antibiotic solution and bacitracin. Then, the 36 mm +0 liner was impacted into position and assessed for stability. The cup position was approximately 45 degrees of abduction and 15 degrees of anteversion. We tried to match her anatomy, placed her in more abduction than her normal anatomy. The attention was then taken to the femur which was exposed with flexion and external rotation. First, box osteotome was used followed by a canal reamer to find the canal. Then, we used the Accolade C system and we used the reamer for the 2 broach and broached down the two which I felt seated a little deep so we could go to a 3 so we were able to ream it for the 3 and broached to 3 which had a tight pressfit. Then we did a trial reduction with a +0 neck length, 36 mm trial head and a 132 degree neck angle. This gave her equal leg lengths, stability through full range of motion. The trials were removed and then after irrigation of the canal, placing a cement restrictor at the appropriate depth and placing a centralizer on the Accolade C size 3 stem of 132 degree neck angle. The Simplex gentamicin cement was vacuum mixed and then the stem was cemented into position holding the appropriate version that was marked when we did the trialing. Excess cement was cleared. We held the stem until the cement cured and then we went ahead and placed on the +0, 36 mm Biolox ceramic head, impacted that in position to be tight and then went ahead and reduced the femur component to the acetabulum. We assessed stability which was stable through full range of motion and did a Betadine soak while we drilled our drill holes in the greater trochanter and passed #5 FiberWire sutures transosseously x2 through the trochanter. Then we did place 2 Hemovac drains deep into the joint, brought them inferolaterally out. Then the Betadine solution was irrigated out copiously with pulsatile lavage antibiotic solution and bacitracin. Then, the gluteus minimus and capsule repaired with [id number] #1 Vicryl sutures. The gluteus medius was repaired with #5 FiberWire with Raoul-Jamel suture technique and then the lateral soft tissue fixation and the gluteus medius tendon was repaired with vegwpt-jv-vraip #2 FiberWire and the split in the medius was repaired with ekymvs-vb-idwyq #1 Vicryls in the split and the vastus lateralis was repaired with nyactj-xv-taalh #1 Vicryls. The repair was secure. The fascia khoa was closed with interrupted gkjruu-[id number] #1 Vicryl sutures. Subcutaneous tissues were closed with interrupted 2-0 Vicryl. Skin was closed with kelly and Silverlon dressing was placed. The patient tolerated the procedure well. The patient did have approximately 200 mL of blood loss. NIC Bragg was my assistant casino shift manager. He functioned as drafter assistant during the entire procedure. He assisted in patient positioning, prepping, draping, assisted in leg positioning, assisted in retraction as necessary and did repair the outer fascial layer, subcutaneous layer, skin and placed the appropriate bandages in place and he will participate in postoperative care of the patient. I attest to the content of the Intraoperative Record and any orders documented therein. Any exception s are noted below.
[2017-12-07] MEDS: CeleBREX 200 MG CAP PO SCH (20:37)
[2017-12-07] MEDS: ACETAMINOPHEN 500 MG TAB PO SCH (20:37)
[2017-12-07] MEDS: ASPIRIN 81 MG ECTAB PO SCH (20:38)
[2017-12-07] MEDS: DOCUSATE SODIUM 100 MG CAP PO SCH (20:38)
[2017-12-07] MEDS: SENNA 8.6 MG TAB PO SCH (20:39)
[2017-12-07] MEDS: DOCUSATE SODIUM/SENNA 50/8.6MG TAB PO SCH (20:40)
[2017-12-07] MEDS: CEFAZOLIN IV 1,000 MG in SYRINGE 0 ML IV SCH (23:20)
[2017-12-08] VITALS (10 sets, daily range): BP systolic 91–132; BP diastolic 50–90; PULSE 63–103; TEMP 36.8–37.3; O2SAT 94–97
[2017-12-08] MEDS: OXYCODONE HCL IR 5 MG TAB (IMMEDIATE RELEASE) PO PRN (00:53)
[2017-12-08] MEDS: ACETAMINOPHEN 500 MG TAB PO SCH ×3 (05:47→21:53)
[2017-12-08 05:52] LABS: BASO % 0.2 %; BASO ABS # 0.02 K/uL (0-0.2); EOS % 2.9 %; EOS ABS # 0.26 K/uL (0-0.5); HEMATOCRIT 30.6 % (37-47); HEMOGLOBIN 10.1 g/dL (12.0-16.0); IG# 0.02 K/uL (0.00-0.02); LYMPH ABS # 1.35 K/uL (1.2-3.4); MEAN CELL VOLUME 84.8 fL (80-100); MEAN PLATELET VOLUME 9.1 fL (7.4-10.4); MONO ABS # 0.72 K/uL (0.11-0.59); NEUT % 73.7 %; NEUT ABS # 6.64 K/uL (1.4-6.5); PLATELET COUNT 241 K/uL (130-400); RED CELL DISTRIBUTION WIDTH CV 16.1 % (11.5-14.5); RED CELL DISTRIBUTION WIDTH SD 50.2 fL (36.4-46.3); WHITE BLOOD COUNT 9.01 K/uL (4.8-10.8)
[2017-12-08 06:21] LABS: CREATININE 0.51 mg/dl (0.60-1.20); POTASSIUM 3.7 mmol/L (3.5-5.1)
[2017-12-08] MEDS: FERROUS GLUCONATE 324 MG TAB PO SCH ×3 (07:35→16:05)
[2017-12-08] MEDS: POLYETHYLENE (MIRALAX) 17 GM PACK PO SCH (07:35)
[2017-12-08] MEDS: CALCIUM CARBONATE 500 MG CHEWABLE PO SCH ×3 (07:35→20:12)
[2017-12-08] MEDS: ASPIRIN 81 MG ECTAB PO SCH ×2 (07:36→20:11)
[2017-12-08] MEDS: CeleBREX 200 MG CAP PO SCH ×2 (07:36→20:10)
[2017-12-08] MEDS: DOCUSATE SODIUM 100 MG CAP PO SCH ×2 (07:36→20:11)
[2017-12-08] MEDS: MULTIVITAMIN TAB PO SCH (07:37)
[2017-12-08] MEDS: FLUTICASONE/SALMETEROL 250/50 (ADVAIR) 14 PUFF/1 INHALER INH SCH (07:37)
[2017-12-08] MEDS: CHOLECALCIFEROL 1000 INTER.UNIT TAB PO SCH (07:37)
--- NOTE | 2017-12-08 07:40 | Clinical Documentation Query ---
CLINICAL DOCUMENTATION QUERY 67yo female with history of long-standing, well-controlled myasthenia gravis, asthma, and osteopenia presenting with a left hip fracture after suffering a fall. In your clinical opinion is this patient being managed for: ( x ) Expected acute blood-loss anemia s/p hip fracture and S/P left total hip arthroplasty ( ) Not Agree ( ) Other explanation of clinical findings (Please Explain) ( ) Unable to determine (Please Define) ( ) Need to Discuss The medical record reflects the following clinical findings, treatment, and risk factors. Clinical Indicators: Hgb 13.2 trending down to 10.1, EBL = 200 ml Treatment: IV hydration, type and screen, serial CBCs Risk Factors: S/P left total hip arthroplasty Please clarify and document your clinical opinion in the progress notes and discharge summary. Terms such as "probable", "suspected", "likely", "questionable", "possible", or "still to be ruled out" are acceptable. IF IN AGREEMENT, YOU MUST DOCUMENT ABOVE DIAGNOSTIC STATEMENT IN DAILY PROGRESS NOTES AND DISCHARGE SUMMARY. This document is not part of the patient's record. Thank You, Nunu Barragan RN [phone]
[2017-12-08] MEDS: CEFAZOLIN IV 1,000 MG in SYRINGE 0 ML IV SCH (07:44)
[2017-12-08] MEDS: PYRIDOSTIGMINE BROMIDE 60 MG TAB PO SCH ×4 (08:09→20:09)
--- NOTE | 2017-12-08 09:58 | Orthopedic Progress Note ---
Orthopedic Progress Note Date of Service Dec 08, 2017. Subjective Post OP Day: 1 Reports: feeling well, Denies: complaints Objective calves soft nontender, N/V intact, dressing C/D/I, A&O x3, toes mobile, hemovac drainage (30ml latest shift) Date Time Temp Pulse Resp B/P (MAP) Pulse Ox O2 Delivery O2 Flow Rate FiO2 12/08/17 07:45 Room Air 12/08/17 04:00 96 Room Air 12/08/17 03:05 37.0 63 16 101/57 (72) 96 Room Air 12/07/17 23:59 100 Room Air 12/07/17 23:30 37.0 64 16 105/61 (76) 94 Room Air 12/07/17 22:30 37.0 69 18 108/69 (82) 92 Room Air 12/07/17 20:50 36.9 75 18 120/71 (87) 100 Nasal Cannula 2.0 12/07/17 20:00 37.0 67 18 134/75 (94) 100 Nasal Cannula 2.0 12/07/17 20:00 100 Nasal Cannula 2.0 12/07/17 19:45 37.4 63 20 124/72 100 Nasal Cannula 2 12/07/17 19:35 60 20 120/74 100 Nasal Cannula 2 12/07/17 19:25 60 20 136/76 97 Nasal Cannula 2 12/07/17 19:19 37.4 72 20 116/68 97 Oxymask 10 12/07/17 12:00 37.2 63 18 145/76 (99) 96 Room Air 12/07/17 12:00 Room Air Laboratory Results 24 Hours: Test 12/08/17 05:26 White Blood Count 9.01 K/uL Red Blood Count 3.61 M/uL Hemoglobin 10.1 g/dL Hematocrit 30.6 % Mean Corpuscular Volume 84.8 fL Mean Corpuscular Hemoglobin 28.0 pg Mean Corpuscular Hemoglobin Concent 33.0 g/dl Platelet Count 241 K/uL Mean Platelet Volume 9.1 fL Neutrophils (%) (Auto) 73.7 % Lymphocytes (%) (Auto) 15.0 % Monocytes (%) (Auto) 8.0 % Eosinophils (%) (Auto) 2.9 % Basophils (%) (Auto) 0.2 % Neutrophils # (Auto) 6.64 K/uL Lymphocytes # (Auto) 1.35 K/uL Monocytes # (Auto) 0.72 K/uL Eosinophils # (Auto) 0.26 K/uL Basophils # (Auto) 0.02 K/uL Assessment & Plan Assessment: POD 1 s/p Left CHRISTINE Plan: Begin PT/OT Possible need for [facility] Pt may go to [facility] per Ortho if ok with Med Service Inhouse Planning Pain Management: Ultram, Dilaudid, PO Tylenol, Oxy IR DVT Prophylaxis: TEDs, SCDs, ASA
--- NOTE | 2017-12-08 10:58 | Anesthesiology Progress Note ---
Anesthesia Post Op Note Date & Time Dec 08, 2017 at 10:58 Vital Signs Pain Intensity: 0.0 Vital Signs Past 12 Hours Date Time Temp Pulse Resp B/P (MAP) Pulse Ox O2 Delivery O2 Flow Rate FiO2 12/08/17 09:12 66 132/69 (90) 73 119/70 (86) 87 116/66 (83) 12/08/17 08:00 37.0 89 18 127/81 (96) 97 12/08/17 07:45 Room Air 12/08/17 04:00 96 Room Air 12/08/17 03:05 37.0 63 16 101/57 (72) 96 Room Air 12/07/17 23:59 100 Room Air 12/07/17 23:30 37.0 64 16 105/61 (76) 94 Room Air Notes Mental Status: alert / awake / arousable, participated in evaluation Pt Amnestic to Procedure: Yes Nausea / Vomiting: adequately controlled Pain: adequately controlled Airway Patency, RR, SpO2: stable & adequate BP & HR: stable & adequate Hydration State: stable & adequate Neuraxial Anesthesia: sensory block resolved Anesthetic Complications: no major complications apparent
[2017-12-08] MEDS: D5W AND NSS 1,000 ML IV SCH (11:50)
--- NOTE | 2017-12-08 17:45 | Progress Note ---
Subjective Date of Service: Dec 08, 2017. Subjective Pt evaluation today including: conversation w/ patient, physical exam, chart review, lab review, review of inpatient medication list d/w PT - was starting to do therapy but had to lay back down got weak no other new complaints, myasthenia doing well Problem List Medical Problems: (1) Displaced fracture of left femoral neck Status: Acute Review of Systems all other ROS otherwise negative except for as above Objective Vital Signs Date Time Temp Pulse Resp B/P (MAP) Pulse Ox O2 Delivery O2 Flow Rate FiO2 12/08/17 15:26 37.3 103 20 128/90 (103) 97 Room Air 12/08/17 12:00 Room Air 12/08/17 11:20 36.9 74 18 117/63 (81) 94 12/08/17 11:04 68 96 12/08/17 09:12 66 132/69 (90) 73 119/70 (86) 87 116/66 (83) 12/08/17 08:00 37.0 89 18 127/81 (96) 97 12/08/17 07:45 Room Air 12/08/17 04:00 96 Room Air 12/08/17 03:05 37.0 63 16 101/57 (72) 96 Room Air 12/07/17 23:59 100 Room Air 12/07/17 23:30 37.0 64 16 105/61 (76) 94 Room Air 12/07/17 22:30 37.0 69 18 108/69 (82) 92 Room Air 12/07/17 20:50 36.9 75 18 120/71 (87) 100 Nasal Cannula 2.0 12/07/17 20:00 37.0 67 18 134/75 (94) 100 Nasal Cannula 2.0 12/07/17 20:00 100 Nasal Cannula 2.0 12/07/17 19:45 37.4 63 20 124/72 100 Nasal Cannula 2 12/07/17 19:35 60 20 120/74 100 Nasal Cannula 2 12/07/17 19:25 60 20 136/76 97 Nasal Cannula 2 12/07/17 19:19 37.4 72 20 116/68 97 Oxymask 10 Physical Exam General Appearance: no apparent distress Eyes: EOMI ENT: hearing grossly normal Neck: trachea midline Respiratory/Chest: no respiratory distress, no accessory muscle use Extremities: normal range of motion Neurologic/Psychiatric: telephone triage nurse II-XII nml as tested, alert, normal mood/affect Skin: normal color, warm/dry Laboratory Results Last 24 Hours Test 12/08/17 05:26 White Blood Count 9.01 K/uL Red Blood Count 3.61 M/uL Hemoglobin 10.1 g/dL Hematocrit 30.6 % Mean Corpuscular Volume 84.8 fL Mean Corpuscular Hemoglobin 28.0 pg Mean Corpuscular Hemoglobin Concent 33.0 g/dl Platelet Count 241 K/uL Mean Platelet Volume 9.1 fL Neutrophils (%) (Auto) 73.7 % Lymphocytes (%) (Auto) 15.0 % Monocytes (%) (Auto) 8.0 % Eosinophils (%) (Auto) 2.9 % Basophils (%) (Auto) 0.2 % Neutrophils # (Auto) 6.64 K/uL Lymphocytes # (Auto) 1.35 K/uL Monocytes # (Auto) 0.72 K/uL Eosinophils # (Auto) 0.26 K/uL Basophils # (Auto) 0.02 K/uL RDW Standard Deviation 50.2 fL RDW Coefficient of Variation 16.1 % Immature Granulocyte % (Auto) 0.2 % Immature Granulocyte # (Auto) 0.02 K/uL Sodium Level 134 mmol/L Potassium Level 3.7 mmol/L Chloride Level 106 mmol/L Carbon Dioxide Level 27 mmol/L Anion Gap 1.0 mmol/L Blood Urea Nitrogen 9 mg/dl Creatinine 0.51 mg/dl Est Creatinine Clear Calc Drug Dose 90.0 ml/min Estimated GFR () 113.7 Estimated GFR (Non- 98.1 BUN/Creatinine Ratio 16.8 Random Glucose 110 mg/dl Calcium Level 8.0 mg/dl Assessment and Plan 1. left hip fracture related to osteopenia - s/p OR doing better PT/OT to continue to mobilize and assess needs post fracture, rehab hopefully as soon as maybe tomorrow 2. myasthenia gravis - continue outpatient regimen of mestinon q4h while awake. doing well with this 3. extra beats - appearing to be ectopy ok to transfer to med/surg 4. thyroid nodule - outpatient f/u advised. f/u PCP 5. asthma - controlled. Cont advair + albuterol prn. no sob 6. hyperglycemia - A1c 6.0, outpt f/u 7. DVT proph - ortho added BID asa, increase activity 8. elevated BP w/o dx of HTN - likely due to pain; appears to be improving 9. osteopenia - vitamin D reasonable. Followed by Dr. Coombs, rheumatology, for this.
[2017-12-08] MEDS: DOCUSATE SODIUM/SENNA 50/8.6MG TAB PO SCH (20:10)
[2017-12-08] MEDS: SENNA 8.6 MG TAB PO SCH (20:10)
[2017-12-09 03:47] VITALS: BP 109/69
[2017-12-09 04:05] VITALS: TEMP 36.6
[2017-12-09] MEDS: ACETAMINOPHEN 500 MG TAB PO SCH ×2 (06:18→13:13)
[2017-12-09 07:26] VITALS: BP 108/69; PULSE 63; TEMP 37.2; O2SAT 95
[2017-12-09] MEDS: FERROUS GLUCONATE 324 MG TAB PO SCH ×2 (07:50→13:13)
[2017-12-09] MEDS: PYRIDOSTIGMINE BROMIDE 60 MG TAB PO SCH ×2 (07:50→13:13)
[2017-12-09] MEDS: FLUTICASONE/SALMETEROL 250/50 (ADVAIR) 14 PUFF/1 INHALER INH SCH (09:44)
[2017-12-09] MEDS: DOCUSATE SODIUM 100 MG CAP PO SCH (09:44)
[2017-12-09] MEDS: GLYCOPYRROLATE 1 MG TAB PO SCH (09:45)
[2017-12-09] MEDS: MULTIVITAMIN TAB PO SCH (09:45)
[2017-12-09] MEDS: CHOLECALCIFEROL 1000 INTER.UNIT TAB PO SCH (09:45)
[2017-12-09] MEDS: CALCIUM CARBONATE 500 MG CHEWABLE PO SCH ×2 (09:45→13:51)
[2017-12-09] MEDS: ASPIRIN 81 MG ECTAB PO SCH (09:45)
[2017-12-09] MEDS: POLYETHYLENE (MIRALAX) 17 GM PACK PO SCH (09:46)
[2017-12-09] MEDS: CeleBREX 200 MG CAP PO SCH ×2 (09:46→11:16)
--- NOTE | 2017-12-09 09:52 | Orthopedic Progress Note ---
Orthopedic Progress Note Date of Service Dec 09, 2017. Subjective Post OP Day: 2 Reports: feeling well, pain controlled w PO medications, Denies: complaints, chest pain, SOB, nausea / vomiting, light headedness, calf pain Objective calves soft nontender, N/V intact, hip located, capillary refill less than 2 sec., dressing C/D/I, A&O x3, toes mobile SILVERLON IN TACT Date Time Temp Pulse Resp B/P (MAP) Pulse Ox O2 Delivery O2 Flow Rate FiO2 12/09/17 08:20 Room Air 12/09/17 07:26 37.2 63 18 108/69 (82) 95 Room Air 12/09/17 04:05 36.6 12/09/17 03:47 109/69 (82) 12/09/17 00:30 Room Air 12/08/17 23:14 36.8 63 15 91/50 (64) 95 Room Air 12/08/17 19:00 Room Air 12/08/17 18:45 37.0 78 18 110/69 (83) 95 Room Air 12/08/17 18:18 37.3 103 20 97 2.0 12/08/17 16:00 Room Air 12/08/17 15:26 37.3 103 20 128/90 (103) 97 Room Air 12/08/17 12:00 Room Air 12/08/17 11:20 36.9 74 18 117/63 (81) 94 12/08/17 11:04 68 96 Assessment & Plan Assessment: POD 2 s/p Left CHRISTINE Plan: PT/OT Possible need for [facility]- PATIENT ACCEPTED AND TO GO LIKELY TODAY DVT PROPH- ASA Inhouse Planning Pain Management: Ultram, Dilaudid, PO Tylenol, Oxy IR DVT Prophylaxis: TEDs, SCDs, ASA
--- NOTE | 2017-12-09 09:57 | Consultant Recommendations ---
Hoop Maker Helper Machine Recommendations Date of Service Dec 09, 2017. Hoop Maker Helper Machine Recommendations S/P LEFT CHRISTINE W CEMENTED STEM SECONDARY TO HIP FRACTURE WBAT WITH WALKER LEFT LE. STRICT HIP PRECAUTIONS. SILVERLON DRESSING TO BE REMOVED 1 WEEK POST OP AND REPLACED W DRY STERILE DRESSING CHANGES DAILY. CONTINUE ASA 81MG BID FOR DVT PROPH. FOR [address] UP WITH [address]. RODRIGUEZ AT [facility] 12-14 DAYS POST OP, CALL [phone] FOR APPT.
[2017-12-09] MEDS ORDERED: FRRG PO (10:50)
[2017-12-09] MEDS ORDERED: CLC100 PO (10:50)
[2017-12-09] MEDS ORDERED: RXC5 PO (10:50)
[2017-12-09] MEDS ORDERED: ASPEC81 PO (10:50)
--- NOTE | 2017-12-09 10:53 | Discharge Instructions ---
Discharge Instructions Date of Service Dec 09, 2017. Admission Reason for Admission: Displaced Fracture Of Left Femoral Neck Discharge Discharge Diagnosis / Problem: hip fracture Discharge Goals Goal(s): Diagnostic testing, Therapeutic intervention Activity Recommendations Activity Level: Assistance Required Therapies: Physical Therapy, Occupational Therapy . Additional Information Patient informed of condition: Yes Advance Directives: Yes DNR: No Level of Care: Acute Rehab Communicable Disease: No Prognosis: Improving Instructions / Follow-Up Instructions / Follow-Up ortho currently recommending asa 81mg bid for dvt proph - depending on activity level, continue this vs escalate to heparin SQ anemia on par with fracture/surgery - please follow CBC periodically and as clinically appropriate Current Hospital Diet Patient's current hospital diet: Regular Diet Discharge Diet Recommended Diet: Regular Diet Procedures Procedures Performed: Left Total Hip Arthroplasty,cemented stem Pending Studies Studies pending at discharge: no Laboratory Results Hemoglobin A1c Test 12/07/17 06:21 Range/Units Estimated Average Glucose 126 mg/dl Hemoglobin A1c 6.0 H 4.5-5.6 % Medical Emergencies . Who to Call and When: Medical Emergencies: If at any time you feel your situation is an emergency, please call 911 immediately. . Non-Emergent Contact Non-Emergency issues call your: Primary Care Provider . . "Provider Documentation" section prepared by Aakash Villafuerte. . Correctional Probation Officer Recommendations Correctional Probation Officer Recommendations: S/P LEFT CHRISTINE W CEMENTED STEM SECONDARY TO HIP FRACTURE WBAT WITH WALKER LEFT LE. STRICT HIP PRECAUTIONS. SILVERLON DRESSING TO BE REMOVED 1 WEEK POST OP AND REPLACED W DRY STERILE DRESSING CHANGES DAILY. CONTINUE ASA 81MG BID FOR DVT PROPH. FOR [address] FOLLOW UP WITH DR. RODRIGUEZ AT [facility] 12-14 DAYS POST OP, CALL [phone] FOR APPT. Core Measure Problem Core Measures: None
[2017-12-09 12:39] VITALS: BP 108/69; PULSE 63; TEMP 37.2; O2SAT 95
--- NOTE | 2017-12-09 17:57 | Discharge Summary ---
Discharge Summary Date of Service Dec 09, 2017. Discharge Summary Admission Date: Dec 06, 2017 at 22:37 Discharge Date: Dec 09, 2017 Discharge Disposition: Rehab Principal Diagnosis: hip fracture Immunizations: Have You Had Influenza Vaccine: Yes History of Tetanus Vaccine?: Yes History of Pneumococcal: Yes Pneumococcal Date: Nov 10, 2013 History of Hepatitis B Vaccine: No Procedures: Immediate Operative Summary Operative Date Dec 07, 2017. Pre-Operative Diagnosis fracture of the left femoral neck. Post-Operative Diagnosis fracture of the left femoral neck with comminution posterior neck Procedure(s) Performed Left Total Hip Arthroplasty,cemented stem Surgeon Dr. Jez Pitt Watershed Tender Surgeon(s) Dell Reno-PAC Estimated Blood Loss 200cc Findings Consistent with Post-Op Diagnosis Specimens A. Left femoral head bone and tissue Drains 2 hemovac Anesthesia Type Spinal MAC Complication(s) none Last Resulted CBC 12/08/17 05:26 Red Blood Count 3.61, Mean Corpuscular Volume 84.8, Mean Corpuscular Hemoglobin 28.0, Mean Corpuscular Hemoglobin Concent 33.0, Mean Platelet Volume 9.1, Neutrophils (%) (Auto) 73.7, Lymphocytes (%) (Auto) 15.0, Monocytes (%) (Auto) 8.0, Eosinophils (%) (Auto) 2.9, Basophils (%) (Auto) 0.2, Neutrophils # (Auto) 6.64, Lymphocytes # (Auto) 1.35, Monocytes # (Auto) 0.72, Eosinophils # (Auto) 0.26, Basophils # (Auto) 0.02 Last Resulted BMP 12/08/17 05:26 Consultations: orthopedic surgery Medication Reconciliation New Medications: Aspirin (Aspirin EC Low Dose) 81 Mg Ectab 81 MG PO BID, #30 Docusate Sodium (Docusate Sodium) 100 Mg Cap 100 MG PO BID, #30 CAP Ferrous Gluconate (Ferrous Gluconate) 324 Mg Tab 324 MG PO TIDM, #30 TAB Oxycodone HCl (Oxycodone HCl) 5 Mg Tab 5 MG PO Q4H PRN for Moderate pain (pain scale 4-6), #30 TAB Continued Medications: Albuterol Sulfate (Proair Hfa) 108 Mcg/ Aer 2 PUFFS INH Q4H PRN for SOB/Wheezing Calcium (Calcium) 600 Mg Tab 600 MG PO TID Cholecalciferol (D-1000) 1,000 Unit Tab 1000 INTER.UNIT PO MWF Fluticasone Prop/Salmeterol (Advair Diskus 250/50 60 Dose) 1 Ea Aerp 1 PUFF INH DAILY, INHALER Glycopyrrolate (Glycopyrrolate) 1 Mg Tab 1 MG PO 4XWK Pyridostigmine Albert (Mestinon) 60 Mg Tab 180 MG PO Q4H Discharge Exam Physical Exam: General Appearance: no apparent distress Eyes: EOMI ENT: hearing grossly normal Respiratory/Chest: no respiratory distress, no accessory muscle use Extremities: normal inspection Neurologic/Psychiatric: insole cementer II-XII nml as tested, alert, normal mood/affect Skin: normal color Hospital Course 1. left hip fracture related to osteopenia - s/p OR doing better PT/OT to continue at rehab, stable for discharge 2. myasthenia gravis - continue outpatient regimen of mestinon q4h while awake. doing well with this 3. acute blood loss anemia - related to hip fracture and surgery. not in range to require transfusion. likely does account for lightheadedness, but this is improving. periodic CBC as outpt 4. thyroid nodule - outpatient -- f/u PCP 5. asthma - controlled. Cont advair + albuterol prn. no sob 6. hyperglycemia - A1c 6.0, outpt f/u 7. DVT proph - ortho added BID asa 8. elevated BP w/o dx of HTN - likely due to pain; appears to be improving 9. osteopenia - vitamin D reasonable. Followed by Dr. Coombs, rheumatology, for this. Total Time Spent: Less than 30 minutes This includes examination of the patient, discharge planning, medication reconciliation, and communication with other providers. Discharge Instructions Please refer to the electronic Patient Visit Report (Discharge Instructions) for additional information. Additional Copies To David Nelson
== END 2017-12-09 14:20 | DRG 482 ==
LOC: C.EDB 19:21 → C.2T 22:37 → EDBEDREQ 22:40 → ENRESERV 22:46 → C.MSN 12-08 17:40 → ENRESERV 12-08 17:56
PROVIDERS: ADMIT Internal Medicine; ATTEND Family Medicine
PROC: 0QR70JZ Replacement of Left Upper Femur with Synthetic Substitute, Open Approach (ICD-10-PCS; principal; 2017-12-06)
DX: S72.002A Fracture of unspecified part of neck of left femur, initial encounter for closed fracture (principal); Z82.49 Family history of ischemic heart disease and other diseases of the circulatory system; Z87.891 Personal history of nicotine dependence; G70.00 Myasthenia gravis without (acute) exacerbation; M85.80 Other specified disorders of bone density and structure, unspecified site; Z85.41 Personal history of malignant neoplasm of cervix uteri; K22.5 Diverticulum of esophagus, acquired; Z96.653 Presence of artificial knee joint, bilateral; W00.0XXA Fall on same level due to ice and snow, initial encounter

== ENCOUNTER → 2018-05-26 | Outpatient (CLI) | payer OTHER ==
[~2018-05-26] MED LIST changes: +ASPI-320 PO; +CALC600T37 PO; -CALCTAB5 PO; -CHOL100010 PO; +CHOLTAB5 PO; +CLC100 PO; +FRRG PO; -OMEP40CA41 PO; +RXC5 PO
== END | disposition home or self-care (01) ==
LOC: C.LAB1850 15:30
PROVIDERS: ATTEND Internal Medicine Rheumatology
DX: M85.80 Other specified disorders of bone density and structure, unspecified site (principal); E55.9 Vitamin D deficiency, unspecified; E61.8 Deficiency of other specified nutrient elements; S72.002A Fracture of unspecified part of neck of left femur, initial encounter for closed fracture; X58.XXXA Exposure to other specified factors, initial encounter

== ENCOUNTER 2025-07-28 16:59 | Inpatient (IN) ==
--- NOTE | 2025-07-28 19:23 | Emergency Department Note ---
Impression & Plan Weakness generalized, Ambulatory dysfunction, Urinary tract infection ED Provider Note CHIEF COMPLAINT: Weakness HISTORY OF PRESENTING ILLNESS: This 74-year-old female patient presents to the emergency department with her family for evaluation of weakness and fatigue. The symptoms have been present for the past week, but getting progressively worse. The patient states that she is normally able to stand for 20 minutes before she gets weak, but now unable to ambulate because of the weakness. The patient denies any chest pain or shortness of breath. She does have a history of myasthenia gravis and parkinsonism. She states that her myasthenia gravis had been stable for the past 65 years. However, about 2 years ago she had shoulder surgery and then developed weakness that has been getting progressively worse. She has seen 3 different neurologists for her weakness without cause found per patient. The patient denies any chest pain or shortness of breath. She denies any abdominal pain, nausea or vomiting, she states that she has been having some urinary frequency, but otherwise denies urinary symptoms. She denies any changes in her bowel movements. She denies any fevers, cough, or URI symptoms. REVIEW OF SYSTEMS: See HPI for pertinent positives and pertinent negatives. ALLERGIES: Cortisone, naproxen, morphine, quinine MEDICATIONS: See below PAST MEDICAL HISTORY: See below PHYSICAL EXAM: VITALS: Vitals are noted on the nurse's note and reviewed by myself. GENERAL: The patient appears chronically ill in appearance and is thin on exam. No acute distress, non-diaphoretic. SKIN: Capillary reflex less than 2 seconds. HEAD: No scalp tenderness. No step-offs felt. EARS: Bilateral external auditory canals clear. Bilateral tympanic membranes pearly whitt without erythema or effusion. No hemotympanum. No joshua sign. No mastoid tenderness. EYES: Pupils equal round and reactive to light and accommodation. Conjunctivae without injection, sclerae without icterus. Extraocular movements intact without pain. No nystagmus. NOSE: Patent, turbinates without inflammation or discharge. No sinus tenderness. No septal hematoma or bleeding. FACE: No facial bone tenderness. Full range of motion of the jaw without tenderness. No facial droop. MOUTH: Mucous membranes moist. Uvula midline. Airway patent. Tongue does not deviate. NECK: Supple without nuchal rigidity. Cervical spine is nontender. Full range of motion of the neck without tenderness and normal strength. HEART: Regular rate and rhythm without murmurs gallops or rubs. LUNGS: Clear to auscultation bilaterally without wheezes, rales or rhonchi. No retractions or accessory muscle use. No chest wall tenderness. ABDOMEN: Positive bowel sounds x 4. Normal tympanic percussion. Soft, nontender to palpation. No masses or hepatosplenomegaly. No guarding or rebound tenderness. No focal RLQ or LLQ tenderness. MUSCULOSKELETAL: No tenderness of the thoracic or lumbar spine or paraspinal muscles. The patient has equal weakness in her bilateral upper and lower extremities that appears to be more of a global weakness. Peripheral pulses 2+ and equal in the bilateral upper and lower extremities. NEURO: Patient was alert and oriented to person place and time. Normal mental status exam. Normal sensation to light and sharp touch. DIFFERENTIAL DIAGNOSIS: Differential diagnosis includes infection, dehydration, metabolic abnormality, hypo/hyperglycemia, electrolyte disturbance, anemia, hypoxia, cardiac sources, intracerebral event, toxicologic, neurologic, as well as other pathologies. ED COURSE AND MEDICAL DECISION MAKING: HISTORY FROM INDEPENDENT HISTORIAN: Additional history obtained for the patient's family MEDICATIONS GIVEN: 500 mL normal saline solution bolus. Rocephin 2 g IV. MONITOR: Continuous intake man: Order was placed for continuous intake man. Patient was placed on the intake man and continuous pulse ox. Patient was noted to be in normal sinus rhythm at an initial rate of 62 bpm per my interpretation. EKG: EKG was interpreted by myself as sinus bradycardia at 56 bpm with no acute ST or T wave changes and no significant change from her previous EKG. INTERPRETATION OF LABS: I interpreted the labs with full lab results as below in the lab section of this note. Laboratory results pertinent to the emergent complaint are discussed in the MDM section below. The patient was advised to follow up with their PCP and/or specialist(s) for further outpatient monitoring and management of any abnormal results. INTERPRETATION OF IMAGING: Imaging studies were interpreted by myself and read by radiology as per the imaging section of this note. The patient was advised to follow up with their PCP and/or specialist(s) for further outpatient management of any non-emergent abnormal findings. Chest x-ray negative for acute cardiopulmonary etiology. CT scan of the head without contrast showed mild cerebral atrophy and periventricular white matter low-density consistent with chronic small vessel disease and/or senescent changes. No acute large vessel infarct or intracranial hemorrhage is seen. Chronic appearing mucosal thickening in the frontal and ethmoid sinuses without acute gas/fluid levels. CTA of the head with IV contrast showed that the anterior, middle, and posterior cerebral arteries appear within normal limits. No aneurysm, vascular malformation, or large vessel occlusion identified. CTA of the neck with IV contrast shows 40% stenosis of the proximal right internal carotid artery and 25% stenosis of the proximal left internal carotid artery. CTA of the chest with IV contrast shows slightly prominent interstitial markings in the lungs with possible mild bronchitis. No acute focal infiltrate or consolidation. No obvious PE. The heart is mildly enlarged with no pericardial effusion. Mild dilation of the right atrium. CHRONIC MEDICAL/SOCIAL CONDITIONS AFFECTING CARE: Myasthenia gravis, parkinsonism CONSULTATIONS: On-call hospitalist MDM SUMMARY: The patient was seen during a time of extreme volume and extreme acuity. Nursing triage protocols were initiated with IV lock, labs, and/or imaging studies conducted by protocol in the triage area. The patient was initially evaluated in triage room and then re-evaluated once they were taken back to an exam room. The patient has been having progressively worsening weakness recently. She is now unable to ambulate on her own which is a change for her. She does have a history of myasthenia gravis and parkinsonism. The patient was given 500 mL liter normal saline solution bolus. The patient declined any medication for pain or other symptoms while in the ER. CBC without leukocytosis, anemia, or thrombocytopenia. Coags were normal. BUN elevated at 25 and chloride 108, but CMP otherwise normal. Magnesium normal. CPK normal. High-sensitivity troponin normal. TSH normal. Urinalysis concerning for possible UTI. Urine culture is pending. Blood cultures were drawn. The patient was given IV Rocephin. Chest x-ray negative for acute cardiopulmonary etiology. CT scan of the head without contrast showed mild cerebral atrophy and periventricular white matter low-density consistent with chronic small vessel disease and/or senescent changes. No acute large vessel infarct or intracranial hemorrhage is seen. Chronic appearing mucosal thickening in the frontal and ethmoid sinuses without acute gas/fluid levels. CTA of the head with IV contrast showed that the anterior, middle, and posterior cerebral arteries appear within normal limits. No aneurysm, vascular malformation, or large vessel occlusion identified. CTA of the neck with IV contrast shows 40% stenosis of the proximal right internal carotid artery and 25% stenosis of the proximal left internal carotid artery. CTA of the chest with IV contrast shows slightly prominent interstitial markings in the lungs with possible mild bronchitis. No acute focal infiltrate or consolidation. No obvious PE. The heart is mildly enlarged with no pericardial effusion. Mild dilation of the right atrium. I had a meaningful discussion about this patient with Dr. Shetty who agrees with my assessment and the treatment plan. Due to the patient's progressive weakness and trouble ambulating at home, the findings on her CT scans, and her UTI, it was felt the patient would benefit from admission. I spoke with the on-call hospitalist who agreed to admit the patient for further evaluation and treatment. Please refer to their dictation for further details. The patient's care was transferred in stable condition. DIAGNOSIS: Weakness Ambulatory dysfunction UTI Past Med/Surg History Problem List (Updated 07/29/25 @ 17:55 by Arelis Hart PA-C) Carotid stenosis, bilateral Ambulatory dysfunction (Acute) Weakness Urinary tract infection (Acute) Weakness generalized (Acute) Obstructive sleep apnea Degenerative spondylolisthesis Lumbar radiculopathy Spinal stenosis of lumbar region with neurogenic claudication Spinal stenosis of lumbar region Collapse of external ear canal Bilateral tinnitus Parkinsonian features Dysfunction of left eustachian tube Sensorineural hearing loss (SNHL) of both ears Asthma PET DANDER EFFECTS ASTHMA>LAST RESCUE INHALER USED AT [facility]2017 Underweight DJD (degenerative joint disease) of knee (11/09/13) Myasthenia gravis Zenkers diverticulum Vitamin D deficiency Osteoporosis Laryngopharyngeal reflux Hypertension Diverticulosis Depression Degeneration of cervical intervertebral disc Balance problem Hyperlipidemia Enlarged lymph node in neck (Acute) Medical History History of cervical cancer Family history of reaction to anesthesia Osteoarthritis Zenker diverticulum GERD (gastroesophageal reflux disease) Myasthenia gravis Periapical abscess with facial involvement Surgical History S/P Mohs surgery for basal cell carcinoma History of total abdominal hysterectomy and bilateral salpingo-oophorectomy History of total hip arthroplasty H/O shoulder replacement History of total knee replacement History of colonoscopy History of esophagogastroduodenoscopy (EGD) History of tooth extraction History of cataract surgery History of surgery History of total abdominal hysterectomy Family History Mother Ovarian cancer Dementia Grandfather Acute myocardial infarction Sister Breast cancer Father Myocardial infarction Adverse anesthesia outcome Heart disease Brother Skin cancer (melanoma) Heart disease Sister Skin cancer (melanoma) Denies family history of Colon cancer Prostate cancer Social History (Updated 07/20/25 @ 14:11 by Soumya Angel LPN) Smoking Status: Former smoker Tobacco Type: Cigarettes Age Started Using Tobacco: 15; Age Quit Using Tobacco: 38; packs per day: 1; Second Hand Exposure: No; Do You Dip or Chew Tobacco: No; Tobacco Cessation Education Requested by Patient: No Hx Alcohol Use: No Hx Substance Use: No Preferred Language: Stateless Communication Ability: Effective Visual Impairment: Limited Hearing Ability: Normal Edge Trimmer Required: No Beliefs That Will Affect Care: None marital status: Single Current Living Situation: Alone Current Living Situation Comment: Lives in a house by herself current occupational status: retired How many Children do You have: 0 Feels Safe at Home: Yes Safety Concerns: Feels Safe At This Time Childhood Exposure to Second-Hand Smoke: Yes Diet: regular caffeine: No during the past year weight has: decreased > 10 lbs Dental Care, Regularly: Yes Physical Activity Frequency: Does not Exercise Seatbelt Use: always Sunscreen Use: No Assistive Devices: Glasses and Walker Allergies Allergies Allergy/AdvReac Type Severity Reaction Status Date / Time cortisone Allergy Mild WAS TOLD Verified 07/20/25 13:26 NEVER TO TAKE naproxen Allergy Mild INTENSE Verified 07/20/25 13:26 ITCHING morphine Allergy Unknown WAS TOLD Verified 07/20/25 13:26 NOT TO TAKE D/T DISEASE quinine Allergy Unknown UNKNOWN Verified 07/20/25 13:26 -RELATEDTO MEDS FOR MYASTHENIA GRAVIS Home Meds Home Medications Medication Instructions Recorded Confirmed calcium [calcium citrate] PO BID 10/06/19 07/20/25 cholecalciferol (vitamin D3) 125 5,000 units PO .COMPLEX 06/08/20 07/20/25 mcg (5,000 unit) tablet denosumab 60 mg/mL subcutaneous 60 mg subcut .COMPLEX 06/08/20 07/20/25 syringe (Prolia) acetaminophen 500 mg tablet 500 mg PO Q6H PRN 02/02/25 07/20/25 (Tylenol Extra Strength) guaifenesin [Mucinex] PO PRN PRN 02/27/25 07/20/25 Previous Rx's Medication Instructions Recorded ketoconazole 2 % shampoo 1 applic topical .COMPLEX #120 mL 08/05/24 Wheelchair (Manual) #1 ea 01/13/25 miscellaneous medical supply #3 ea 01/13/25 carbidopa 10 mg-levodopa 100 mg 1 tab PO TID #270 tabs 01/30/25 tablet famotidine 40 mg tablet 40 mg PO BID #60 tabs 03/28/25 celecoxib 200 mg capsule (Celebrex) 200 mg PO DAILY #30 caps 05/08/25 glycopyrrolate 1 mg tablet See Rx Instructions .Route 06/17/25 .COMPLEX #48 tabs pyridostigmine bromide 60 mg tablet 180 mg (3 x 60 mg) PO .COMPLEX 06/22/25 myasthenia gravis #1,620 tabs Wheelchair (Manual) #1 ea 07/20/25 Results & Data (ED) Vital Signs Vital Signs - 24 hr 07/28/25 19:26 07/28/25 20:08 07/28/25 20:14 Temperature Temperature Source Pulse Rate 56 L Pulse Rate [Apical] 52 L Pulse Rate [Left Finger] 61 Pulse Rate [Right Finger] Pulse Rhythm [Left Finger] Regular Pulse Rhythm [Right Finger] Pulse Strength [Left Finger] Normal Pulse Strength [Right Finger] Respiratory Rate 16 15 Respiratory Effort / Characteristics Non-Labored Spontaneous Non-Labored Spontaneous Respiratory Depth Normal Normal Respiratory Pattern Regular Regular Blood Pressure Blood Pressure [Left Arm] 155/90 H 175/91 H Blood Pressure Mean [Left Arm] 111 119 Blood Pressure Position [Left Arm] Lying Pulse Oximetry 99 97 Oxygen Delivery Method Room Air Room Air EWS Level of Consciousness - Last Result EWS Temperature - Last Result EWS Respiratory Rate - Last Result EWS Oxygen Saturation - Last Result EWS Oxygen in Use - Last Result EWS Score EWS Clinical Risk 07/28/25 22:28 07/29/25 00:00 07/29/25 01:30 Temperature 36.6 C Temperature Source Oral Pulse Rate 53 L Pulse Rate [Apical] 50 L Pulse Rate [Left Finger] Pulse Rate [Right Finger] 53 L Pulse Rhythm [Left Finger] Pulse Rhythm [Right Finger] Regular Pulse Strength [Left Finger] Pulse Strength [Right Finger] Normal Respiratory Rate 17 16 Respiratory Effort / Characteristics Non-Labored Spontaneous Non-Labored Spontaneous Respiratory Depth Normal Normal Respiratory Pattern Regular Regular Blood Pressure Blood Pressure [Left Arm] 162/88 H 184/103 H Blood Pressure Mean [Left Arm] 112 130 Blood Pressure Position [Left Arm] Sitting Pulse Oximetry 97 99 Oxygen Delivery Method Room Air Room Air EWS Level of Consciousness - Last Result EWS Temperature - Last Result EWS Respiratory Rate - Last Result EWS Oxygen Saturation - Last Result EWS Oxygen in Use - Last Result EWS Score EWS Clinical Risk 07/29/25 01:30 07/29/25 01:30 07/29/25 01:36 Temperature 36.6 C Temperature Source Oral Pulse Rate Pulse Rate [Apical] Pulse Rate [Left Finger] Pulse Rate [Right Finger] 53 L Pulse Rhythm [Left Finger] Pulse Rhythm [Right Finger] Regular Pulse Strength [Left Finger] Pulse Strength [Right Finger] Normal Respiratory Rate 16 Respiratory Effort / Characteristics Non-Labored Accessory Muscle Use Non-Labored Spontaneous Respiratory Depth Normal Normal Respiratory Pattern Regular Regular Blood Pressure Blood Pressure [Left Arm] 184/103 H Blood Pressure Mean [Left Arm] 130 Blood Pressure Position [Left Arm] Sitting Pulse Oximetry 99 Oxygen Delivery Method Room Air Room Air EWS Level of Consciousness - Last Result Spontaneously Alert EWS Temperature - Last Result 36.6 EWS Respiratory Rate - Last Result 16 EWS Oxygen Saturation - Last Result 99 EWS Oxygen in Use - Last Result No EWS Score 0 EWS Clinical Risk Low Risk 07/29/25 01:39 07/29/25 02:40 07/29/25 05:42 Temperature Temperature Source Pulse Rate 90 Pulse Rate [Apical] Pulse Rate [Left Finger] Pulse Rate [Right Finger] 54 L Pulse Rhythm [Left Finger] Pulse Rhythm [Right Finger] Regular Pulse Strength [Left Finger] Pulse Strength [Right Finger] Normal Respiratory Rate 16 16 Respiratory Effort / Characteristics Non-Labored Spontaneous Respiratory Depth Normal Respiratory Pattern Regular Blood Pressure 166/98 H Blood Pressure [Left Arm] 151/77 H Blood Pressure Mean [Left Arm] 101 Blood Pressure Position [Left Arm] Lying Pulse Oximetry 98 99 Oxygen Delivery Method Room Air Room Air EWS Level of Consciousness - Last Result Spontaneously Alert EWS Temperature - Last Result 36.6 EWS Respiratory Rate - Last Result 16 EWS Oxygen Saturation - Last Result 99 EWS Oxygen in Use - Last Result No EWS Score 0 EWS Clinical Risk Low Risk 07/29/25 07:58 07/29/25 07:59 07/29/25 08:00 Temperature 36.6 C Temperature Source Oral Pulse Rate Pulse Rate [Apical] Pulse Rate [Left Finger] Pulse Rate [Right Finger] 57 L Pulse Rhythm [Left Finger] Pulse Rhythm [Right Finger] Pulse Strength [Left Finger] Pulse Strength [Right Finger] Respiratory Rate 17 Respiratory Effort / Characteristics Non-Labored Spontaneous Respiratory Depth Normal Respiratory Pattern Regular Blood Pressure Blood Pressure [Left Arm] 148/87 H Blood Pressure Mean [Left Arm] 107 Blood Pressure Position [Left Arm] Lying Pulse Oximetry 95 Oxygen Delivery Method Room Air Room Air EWS Level of Consciousness - Last Result Spontaneously Alert EWS Temperature - Last Result 36.6 EWS Respiratory Rate - Last Result 17 EWS Oxygen Saturation - Last Result 95 EWS Oxygen in Use - Last Result No EWS Score 1 EWS Clinical Risk Low Risk Laboratory Data 07/29/25 07:01 07/29/25 07:05 Lab Results 07/28/25 07/28/25 07/29/25 Range/Units 20:21 23:00 07:01 WBC 5.78 5.11 (4.8-10.8) K/ul RBC 4.27 4.43 (4.20-5.40) M/uL Hgb 12.8 12.6 (12.0-16.0) g/dl Hct 38.1 39.1 (37.0-47.0) % MCV 89.2 88.3 (80.0-100.0) fL MCH 30.0 28.4 (25.0-34.0) pg MCHC 33.6 32.2 (32.0-36.0) g/dL RDW Std Deviation 45.0 44.8 (36.4-46.3) fL RDW Coeff of Irvin 13.7 13.8 (11.5-14.5) % Plt Count 335 318 (130-400) K/uL MPV 9.7 9.4 (9.4-12.4) fL Immature Gran % (Auto) 0.2 0.2 % Neut % (Auto) 61.2 64.4 % Lymph % (Auto) 24.0 20.5 % [place] % (Auto) 7.3 7.6 % Eos % (Auto) 6.6 6.1 % Baso % (Auto) 0.7 1.2 % Neut # (Auto) 3.54 3.29 (1.40-6.50) K/uL Lymph # (Auto) 1.39 1.05 L (1.20-3.40) K/uL [place] # (Auto) 0.42 0.39 (0.11-0.59) K/uL Eos # (Auto) 0.38 0.31 (0.00-0.50) K/uL Baso # (Auto) 0.04 0.06 (0.00-0.20) K/uL Immature Gran # (Auto) 0.01 0.01 (0.01-0.20) K/uL PT 10.9 (9.0-12.0) Seconds INR 1.0 (0.9-1.1) APTT 29 (21-31) Seconds PTT Ratio 1.1 Sodium 140 (136-145) mmol/L Potassium 4.3 (3.5-5.1) mmol/L Chloride 108 H (98-107) mmol/L Carbon Dioxide 29 (21-32) mmol/L Anion Gap 3 (3-11) BUN 25 H (6-23) mg/dl Creatinine 0.84 (0.6-1.2) mg/dl Est Cr Clr Drug Dosing Not Reportable eGFR 71.97 BUN/Creatinine Ratio 29.8 H (10-20) Glucose 93 (70-99(Fasting)) mg/dl Estimat Average Glucose mg/dl Hemoglobin A1c (4.5-5.6) % Calcium 9.2 (8.6-10.3) mg/dl Magnesium 2.0 (1.7-2.4) mg/dl Total Bilirubin 0.5 (0.2-1.0) mg/dl AST 18 (13-39) U/L ALT 3 L (7-52) U/L Alkaline Phosphatase 59 (34-104) U/L Total Creatine Kinase 35 (26-192) U/L Troponin I High Sens 6.1 (0-14) pg/ml Total Protein 6.9 (6.0-8.3) gm/dl Albumin 3.7 (3.4-5.0) gm/dl Globulin 3.2 (2.5-4.0) gm/dl Albumin/Globulin Ratio 1.2 (0.9-2) Triglycerides (0-150) mg/dl Cholesterol (0-200) mg/dl LDL Cholesterol, Calc mg/dl VLDL Cholesterol, Calc (0-30) mg/dl HDL Cholesterol mg/dl Cholesterol/HDL Ratio (0-5) TSH 1.872 (0.300-4.500) uIu/ml Urine Color Yellow Urine Appearance Clear (Clear) Urine pH 7.0 (4.5-7.5) Ur Specific [place] > 1.045 H (1.000-1.030) Urine Protein Negative (Negative) Urine Glucose (UA) Negative (Negative) Urine Ketones Negative (Negative) Urine Blood Negative (Negative) Urine Nitrite Negative (Negative) Urine Bilirubin Negative (Negative) Urine Urobilinogen Negative (Negative) Ur Leukocyte Esterase Trace H (Negative) Urine WBC (Auto) 11-20 H (0-5) /hpf Urine RBC (Auto) 0-2 (0-2) /hpf U Hyaline Cast (Auto) 0-2 (0-2) /lpf U Epithel Cells (Auto) 3-5 H (0-2) /hpf Urine Bacteria (Auto) 2+ H (None Seen) Urine Comment 07/29/25 Range/Units 07:05 WBC (4.8-10.8) K/ul RBC (4.20-5.40) M/uL Hgb (12.0-16.0) g/dl Hct (37.0-47.0) % MCV (80.0-100.0) fL MCH (25.0-34.0) pg MCHC (32.0-36.0) g/dL RDW Std Deviation (36.4-46.3) fL RDW Coeff of Irvin (11.5-14.5) % Plt Count (130-400) K/uL MPV (9.4-12.4) fL Immature Gran % (Auto) % Neut % (Auto) % Lymph % (Auto) % [place] % (Auto) % Eos % (Auto) % Baso % (Auto) % Neut # (Auto) (1.40-6.50) K/uL Lymph # (Auto) (1.20-3.40) K/uL [place] # (Auto) (0.11-0.59) K/uL Eos # (Auto) (0.00-0.50) K/uL Baso # (Auto) (0.00-0.20) K/uL Immature Gran # (Auto) (0.01-0.20) K/uL PT (9.0-12.0) Seconds INR (0.9-1.1) APTT (21-31) Seconds PTT Ratio Sodium 139 (136-145) mmol/L Potassium 4.0 (3.5-5.1) mmol/L Chloride 106 (98-107) mmol/L Carbon Dioxide 28 (21-32) mmol/L Anion Gap 5 (3-11) BUN 17 (6-23) mg/dl Creatinine 0.68 (0.6-1.2) mg/dl Est Cr Clr Drug Dosing 48.2 eGFR 90.20 BUN/Creatinine Ratio 25.0 H (10-20) Glucose 104 H (70-99(Fasting)) mg/dl Estimat Average Glucose 123 mg/dl Hemoglobin A1c 5.9 H (4.5-5.6) % Calcium 8.6 (8.6-10.3) mg/dl Magnesium 1.8 (1.7-2.4) mg/dl Total Bilirubin (0.2-1.0) mg/dl AST (13-39) U/L ALT (7-52) U/L Alkaline Phosphatase (34-104) U/L Total Creatine Kinase (26-192) U/L Troponin I High Sens (0-14) pg/ml Total Protein (6.0-8.3) gm/dl Albumin (3.4-5.0) gm/dl Globulin (2.5-4.0) gm/dl Albumin/Globulin Ratio (0.9-2) Triglycerides 129 (0-150) mg/dl Cholesterol 223 H (0-200) mg/dl LDL Cholesterol, Calc 123 mg/dl VLDL Cholesterol, Calc 26 (0-30) mg/dl HDL Cholesterol 74 mg/dl Cholesterol/HDL Ratio 3.0 (0-5) TSH (0.300-4.500) uIu/ml Urine Color Urine Appearance (Clear) Urine pH (4.5-7.5) Ur Specific [place] (1.000-1.030) Urine Protein (Negative) Urine Glucose (UA) (Negative) Urine Ketones (Negative) Urine Blood (Negative) Urine Nitrite (Negative) Urine Bilirubin (Negative) Urine Urobilinogen (Negative) Ur Leukocyte Esterase (Negative) Urine WBC (Auto) (0-5) /hpf Urine RBC (Auto) (0-2) /hpf U Hyaline Cast (Auto) (0-2) /lpf U Epithel Cells (Auto) (0-2) /hpf Urine Bacteria (Auto) (None Seen) Urine Comment Administered Medications Carbidopa/Levodopa (Carbidopa/Levodop 10/100mg Tab) 1 tab PO TID@0700,1500,1900 [facility] [place] Stop: 08/28/25 07:59 Last Admin: 07/29/25 14:58 Dose: 1 tab Documented By: Admin: 07/29/25 08:00 Dose: 1 tab Documented By: DARIANA Celecoxib (Celebrex 200 Mg Cap) 200 mg PO 0700 [facility] Stop: 08/28/25 07:59 Last Admin: 07/29/25 08:00 Dose: 200 mg Documented By: DARIANA Famotidine (Famotidine 40 Mg Tablet) 40 mg PO BID@0700,1900 [facility] [place] Stop: 08/28/25 07:59 Last Admin: 07/29/25 08:00 Dose: 40 mg Documented By: DARIANA Fluticasone Propionate (Fluticasone Propionate Na Spr 16 Gm Btl) 2 sprays NA DAILY [facility] Stop: 08/28/25 08:59 Last Admin: 07/29/25 08:01 Dose: 2 sprays Documented By: DARIANA Glycopyrrolate (Glycopyrrolate 1 Mg Tab) 1 mg PO SuTuThSa@0700 [facility] [place] Stop: 08/28/25 07:59 Last Admin: 07/29/25 08:06 Dose: 1 mg Documented By: DARIANA Pyridostigmine [place] (Pyridostigmine [place] 60 Mg Tab) 180 mg PO 0700,1100,1500,1900 [facility] [place] Stop: 08/28/25 07:59 Last Admin: 07/29/25 14:59 Dose: 180 mg Documented By: Admin: 07/29/25 11:41 Dose: 180 mg Documented By: Admin: 07/29/25 08:01 Dose: 180 mg Documented By: DARIANA Discontinued Medications Sodium Chloride (Nss) 500 mls @ 999 mls/hr IV .Q31M ONE Stop: 07/28/25 19:58 Last Infusion: 07/29/25 02:20 Dose: Infused Documented By: francisco Admin: 07/28/25 19:41 Dose: 999 mls/hr Documented By: ISA Ceftriaxone Sodium (Rocephin) 2,000 mg in 50 mls @ 100 mls/hr IV NOW STA Stop: 07/29/25 00:30 Last Infusion: 07/29/25 02:19 Dose: Infused Documented By: francisco Admin: 07/29/25 01:10 Dose: 100 mls/hr Documented By: YUE Lactated Ringer's (Lr) 1,000 mls @ 80 mls/hr IV .[id number] MICHELLE Stop: 07/29/25 13:14 Last Infusion: 07/29/25 15:10 Dose: Infused Documented By: Admin: 07/29/25 02:29 Dose: 80 mls/hr Documented By: francisco Ioversol (Optiray 320 125ml) 118 ml IV ONCE ONE Stop: 07/28/25 21:41 Last Admin: 07/28/25 21:40 Dose: 118 ml Documented By: MITUL Miscellaneous (Patient's Height &/Or Weight Needed) 1 each N/A NOW STA Stop: 07/29/25 02:15 Last Admin: 07/29/25 04:07 Dose: 1 each Documented By: francisco Discharge Plan Visit Data Chief Complaint: Referred by Doctor Stated Complaint: EXTREME WEAKNESS MENDO[facility] REFERRAL ED Provider: Yaw Shetty ED Midlevel Provider: Arelis Hart Discharge Problem: Weakness generalized, Ambulatory dysfunction, Urinary tract infection Patient Disposition: Admitted As Inpatient Condition: Fair Discharge Instructions Interventions: ED Discharge Assessment Last Done: 07/29/25 01:39 Discharge Problem: Urinary tract infection Qualifiers: Urinary tract infection type: acute cystitis Hematuria presence: without hematuria Qualified Code(s): N30.00 - Acute cystitis without hematuria
[2025-07-28] MEDS: SODIUM CHLORIDE 0.9% 500 ML IV ONE (19:41)
[2025-07-28 20:54] LABS: Hematocrit (blood only) 38.1 % (37.0-47.0); Hemoglobin 12.8 g/dl (12.0-16.0); Immature Granulocytes # (auto) 0.01 K/uL (0.01-0.20); Immature Granulocytes % (auto) 0.2 %; Mean Corpuscular Hemoglobin 30.0 pg (25.0-34.0); Mean Corpuscular Volume 89.2 fL (80.0-100.0); Platelet Count 335 K/uL (130-400); RDW Standard Deviation 45.0 fL (36.4-46.3); Red Blood Count 4.27 M/uL (4.20-5.40); White Blood Count 5.78 K/ul (4.8-10.8)
[2025-07-28 21:12] LABS: Alanine Aminotransferase 3 U/L (7-52); Albumin Globulin Ratio 1.2 (0.9-2); Albumin Level 3.7 gm/dl (3.4-5.0); Alkaline Phosphatase 59 U/L (34-104); Anion Gap 3 (3-11); Bilirubin,Total 0.5 mg/dl (0.2-1.0); Blood Urea Nitrogen 25 mg/dl (6-23); Calcium 9.2 mg/dl (8.6-10.3); Carbon Dioxide 29 mmol/L (21-32); Chloride 108 mmol/L (98-107); Creatine Kinase 35 U/L (26-192); Globulin 3.2 gm/dl (2.5-4.0); Glucose 93 mg/dl (70-99(Fasting)); Magnesium 2.0 mg/dl (1.7-2.4); Potassium 4.3 mmol/L (3.5-5.1); Sodium 140 mmol/L (136-145); Total Protein 6.9 gm/dl (6.0-8.3)
[2025-07-28 21:20] LABS: INR 1.0 (0.9-1.1); Partial Thromboplastin Time 29 Seconds (21-31); Prothrombin Time 10.9 Seconds (9.0-12.0)
[2025-07-28 21:29] LABS: Thyroid Stimulating Hormone 1.872 uIu/ml (0.300-4.500)
[2025-07-28] MEDS: OPTIRAY 320 125ml IV ONE (21:40)
--- NOTE | 2025-07-28 22:41 | XRay Report ---
Exam(s): XR CXR 1 VIEW EXAM: XR Chest, 1 View CLINICAL HISTORY: Reason for exam: Weakness. TECHNIQUE: Frontal view of the chest. COMPARISON: 09/15/2022 FINDINGS: Lungs: Unremarkable. No consolidation. Pleural space: Unremarkable. No pneumothorax. Heart: Unremarkable. No cardiomegaly. Mediastinum: Unremarkable. Normal mediastinal contour. Bones/joints: Previous bilateral shoulder arthroplasty. Pediatric sternotomy wires in place, unchanged. No acute fracture. Other findings: The patient is rotated to the right. IMPRESSION: No acute cardiopulmonary process is identified. Electronically signed by: Portillo Cooper MD 07/28/25 22:41 PM
--- NOTE | 2025-07-28 22:44 | CT Scan Report ---
Exam(s): CT HEAD Without Contrast EXAM: CT Head Without Intravenous Contrast CLINICAL HISTORY: Reason for exam: Weakness. TECHNIQUE: Axial computed tomography images of the head/brain without intravenous contrast. CTDI is 37.22 mGy and DLP is 546 mGy-cm. Automated exposure control was utilized for the study. A dose lowering technique was utilized adhering to the principles of ALARA. COMPARISON: No relevant prior studies available. FINDINGS: Brain: Mild cerebral atrophy and periventricular white matter low density consistent with chronic small vessel disease and/or senescent changes. No acute large vessel infarct or intracranial hemorrhage is seen. Ventricles: Unremarkable. No ventriculomegaly. Bones/joints: Unremarkable. No acute fracture. Soft tissues: Unremarkable. Sinuses: Unremarkable as visualized. No acute sinusitis. Mastoid air cells: Unremarkable as visualized. No mastoid effusion. IMPRESSION: Mild cerebral atrophy and periventricular white matter low density consistent with chronic small vessel disease and/or senescent changes. No acute large vessel infarct or intracranial hemorrhage is seen. Chronic appearing mucosal thickening in the frontal and ethmoid sinuses without acute gas fluid levels. Electronically signed by: Portillo Cooper MD 07/28/25 22:43 PM
--- NOTE | 2025-07-28 22:47 | CT Scan Report ---
Exam(s): CTA HEAD With Contrast IV Amt: 118ml optiray 320 EXAM: CT Angiography Head With Intravenous Contrast CLINICAL HISTORY: Reason for exam: Weakness. TECHNIQUE: Axial computed tomographic angiography images of the head with intravenous contrast. CTDI is 72 mGy and DLP is 926 mGy-cm. Automated exposure control was utilized for the study. A dose lowering technique was utilized adhering to the principles of ALARA. MIP reconstructed images were created and reviewed. CONTRAST: Patient received 118ml optiray 320 of IV contrast COMPARISON: No relevant prior studies available. FINDINGS: Right internal carotid artery: Calcified plaque causing 30% stenosis of the distal right internal carotid artery. No aneurysm. Right anterior cerebral artery: Unremarkable. No occlusion or significant stenosis. No aneurysm. Right middle cerebral artery: Unremarkable. No occlusion or significant stenosis. No aneurysm. Right posterior cerebral artery: Unremarkable. No occlusion or significant stenosis. No aneurysm. Normal anatomic variant of origin of the right posterior cerebral artery from the anterior circulation. Right vertebral artery: The distal right vertebral artery is small but patent. Left internal carotid artery: Calcified plaque causes 40% stenosis of the distal left internal carotid artery. No aneurysm. Left anterior cerebral artery: Unremarkable. No occlusion or significant stenosis. No aneurysm. Left middle cerebral artery: Unremarkable. No occlusion or significant stenosis. No aneurysm. Left posterior cerebral artery: Unremarkable. No occlusion or significant stenosis. No aneurysm. Left vertebral artery: Unremarkable as visualized. Basilar artery: Unremarkable. No occlusion or significant stenosis. No aneurysm. IMPRESSION: 30-40% stenosis of the distal internal carotid arteries bilaterally. Impression. The anterior, middle, and posterior cerebral arteries appear within normal limits. No aneurysm, vascular malformation, or large vessel occlusion is identified. Electronically signed by: Portillo Cooper MD 07/28/25 22:46 PM
--- NOTE | 2025-07-28 22:52 | CT Scan Report ---
Exam(s): CTA NECK With Contrast IV Amt: 118ml optiray 320 EXAM: CT Angiography Neck With Intravenous Contrast CLINICAL HISTORY: Reason for exam: Weakness. TECHNIQUE: Routine carotid CT angiography protocol was performed with intravenous contrast. NASCET criteria using the distal ICAs for comparison were used for evaluation of stenoses. CTDI is 70 mGy and DLP is 926 mGy-cm. Automated exposure control was utilized for the study. A dose lowering technique was utilized adhering to the principles of ALARA. MIP reconstructed images were created and reviewed. CONTRAST: Patient received 118ml optiray 320 of IV contrast COMPARISON: None. FINDINGS: VASCULATURE: Right common carotid artery: 20% stenosis of the distal right common carotid artery. No dissection. Right internal carotid artery: 40% stenosis of the proximal right internal carotid artery. No dissection. Right external carotid artery: Unremarkable. No occlusion. Right vertebral artery: The right vertebral artery is somewhat small congenitally but widely patent. No occlusion or significant stenosis. No dissection. Left common carotid artery: Unremarkable. No occlusion or significant stenosis. No dissection. Left internal carotid artery: 25% stenosis of the proximal left internal carotid artery. No dissection. Left external carotid artery: Unremarkable. No occlusion. Left vertebral artery: 20% stenosis of the proximal left vertebral artery. No dissection. Brachiocephalic and subclavian arteries: 50% stenosis of the proximal left subclavian artery. Aorta: The aortic arch is mildly calcified but nondilated. There is no aneurysm or dissection. NECK: Bones/joints: Mild degenerative changes throughout the cervical spine. No acute fracture. Soft tissues: Unremarkable. Lung apices: Clear. CAROTID STENOSIS REFERENCE USING NASCET CRITERIA: % ICA stenosis = (1 - narrowest ICA diameter/diameter of distal cervical ICA) x 100. Mild - <50% stenosis. Moderate - 50-69% stenosis. Severe - 70-94% stenosis. Near occlusion - 95-99% stenosis. Occluded - 100% stenosis. IMPRESSION: 1. 40% stenosis of the proximal right internal carotid artery. 2. 25% stenosis of the proximal left internal carotid artery. Electronically signed by: Portillo Cooper MD 07/28/25 22:51 PM
--- NOTE | 2025-07-28 22:55 | CT Scan Report ---
Exam(s): CTA CHEST IV Amt: 118ml optiray 320 EXAM: CT Angiography Chest With Intravenous Contrast CLINICAL HISTORY: Reason for exam: PE. TECHNIQUE: Axial computed tomographic angiography images of the chest with intravenous contrast. CTDI is 72 mGy and DLP is 926 mGy-cm. Automated exposure control was utilized for the study. A dose lowering technique was utilized adhering to the principles of ALARA. MIP reconstructed images were created and reviewed. COMPARISON: No relevant prior studies available. FINDINGS: Pulmonary arteries: The pulmonary arterial tree is well opacified with contrast. No pulmonary embolism is identified. Aorta: The aortic arch is mildly calcified but nondilated. There is no aneurysm or dissection. Great vessels of aortic arch: 50% stenosis of the proximal left subclavian artery. Lungs: Slightly prominent interstitial markings in the lungs cysts seen possible mild bronchitis. No acute focal infiltrate or consolidation is seen. Pleural space: Unremarkable. No significant effusion. No pneumothorax. Heart: The heart is mildly enlarged. No pericardial effusion is seen. There is mild dilation of the right atrium. Bones/joints: Previous bilateral shoulder arthroplasties. No acute fracture. No dislocation. Soft tissues: Unremarkable. Lymph nodes: Unremarkable. No enlarged lymph nodes. IMPRESSION: 1. Slightly prominent interstitial markings in the lungs cysts seen possible mild bronchitis. No acute focal infiltrate or consolidation is seen. 2. The pulmonary arterial tree is well opacified with contrast. No pulmonary embolism is identified. 3. The heart is mildly enlarged. No pericardial effusion is seen. There is mild dilation of the right atrium. Electronically signed by: Portillo Cooper MD 07/28/25 22:53 PM
[2025-07-28 23:46] LABS: Appearance Urine Clear (Clear); Bacteria Urine Automated 2+ (None Seen); Cast Urine Automated 0-2 /lpf (0-2); Glucose Urine UA Negative (Negative); RBC Urine Automated 0-2 /hpf (0-2)
--- NOTE | 2025-07-29 00:41 | History & Physical Report ---
Date of Service July 29, 2025 Assessment & Plan (1) Urinary tract infection: (2) Weakness: (3) Ambulatory dysfunction: (4) Carotid stenosis, bilateral: Plan Patient is a 74-year-old female with past medical history of myasthenia gravis, Parkinson's, GERD, HLD, spinal stenosis. Patient this had ongoing weakness for 2 years however has been acutely worsening for 1 week. She is typically able to ambulate for 20 minutes at baseline however today cannot ambulate at all. Wor kup in the ED revealed UTI. She is being admitted for IV antibiotics and to have PT/OT evals. #UTI - Likely contributing to acute worsening of weakness. UA concerning for infection. Not septic at time of admissionno leukocytosis, VSS, afebrile. Renal function stable. Coverage with Rocephin Given 500 mL NSS bolus in ED; continue fluid resuscitation with LR at 80 mL/hour x 1L Follow urine cultures Trend CBC #weakness/ambulatory dysfunction - chronic weakness for approximately 2 years thought to be secondary to neurologic conditions however acutely worsened with UTI above. Tick panel January 2025 negative, TSH WNL, no electrolyte abnormalities. Head CT showed chronic small vessel disease. PT/OT ordered Patient has home health PT once a week set up already Continue to follow with neurology in the outpatient setting #bilateral carotid stenosis - neck CTA showed 40% right ICA stenosis and 20% left ICA stenosis. - lipid panel and a1c with am labs #congestion - reported for 6 months. CXR negative. - Flonase daily ordered #Myasthenia graviscontinue pyridostigmine #Parkinson'scontinue carbidopa levodopa #Spinal stenosiscontinue Celebrex and Tylenol VTE ppx: SCDs, low risk Dispo: Med surg Admission and Anticipated Discharge Date Admission Date: 07/29/25 History of Present Illness Chief Complaint: referred by doctor for weakness Primary Care Provider: Melissa Giron MD Patient is a 74-year-old female with past medical history of myasthenia gravis, Parkinson's, GERD, HLD, spinal stenosis. Patient this had ongoing weakness for 2 years however has been acutely worsening for 1 week. She is typically able to ambulate for 20 minutes at baseline however today cannot ambulate at all. Wo rkup in the ED revealed UTI. She is being admitted for IV antibiotics and to have PT/OT evals. Patient seen at bedside with her nephew and his girlfriend present. She stated she has been weak for the past 2 years and this has been followed by neurology and her PCP felt to be secondary to the myasthenia gravis and Parkinson's. The past week it has been acutely worsening as she is typically able to ambulate for 20 minutes at baseline however now was unable to. She uses a rollator to get around her small house and her goal is to return home. She stated she fell several days ago however denies any other recent falls. She has never had a UTI before and denies any dysuria, hematuria, difficulty urinating, abdominal pain, fevers, chills, chest pain, shortness of breath. She denies any nicotine or alcohol use. Denies any allergies to antibiotics. She took all of her home medications today. She does not use any CPAP for her diagnosis of NINA. She wishes to be DNR/DNI. Patient was greatly concerned that she has had a lot of phlegm in her throat and her nose for about 6 months, she stated nothing has worked in the past but she is willing to try Flonase. She has home health PT once a week. Allergies Allergy/AdvReac Type Severity Reaction Status Date / Time cortisone Allergy Mild WAS TOLD Verified 07/20/25 13:26 NEVER TO TAKE naproxen Allergy Mild INTENSE Verified 07/20/25 13:26 ITCHING morphine Allergy Unknown WAS TOLD Verified 07/20/25 13:26 NOT TO TAKE D/T DISEASE quinine Allergy Unknown UNKNOWN Verified 07/20/25 13:26 -RELATEDTO MEDS FOR MYASTHENIA GRAVIS Home Medications Medication Instructions Recorded Confirmed Type calcium [calcium citrate] PO BID 10/06/19 07/20/25 History cholecalciferol (vitamin D3) 125 5,000 units PO .COMPLEX 06/08/20 07/20/25 History mcg (5,000 unit) tablet denosumab 60 mg/mL subcutaneous 60 mg subcut .COMPLEX 06/08/20 07/20/25 History syringe (Prolia) ketoconazole 2 % shampoo 1 applic topical .COMPLEX #120 mL 08/05/24 07/20/25 Rx Wheelchair (Manual) #1 ea 01/13/25 07/20/25 Rx miscellaneous medical supply #3 ea 01/13/25 07/20/25 Rx carbidopa 10 mg-levodopa 100 mg 1 tab PO TID #270 tabs 01/30/25 07/20/25 Rx tablet acetaminophen 500 mg tablet 500 mg PO Q6H PRN 02/02/25 07/20/25 History (Tylenol Extra Strength) guaifenesin [Mucinex] PO PRN PRN 02/27/25 07/20/25 History famotidine 40 mg tablet 40 mg PO BID #60 tabs 03/28/25 07/20/25 Rx celecoxib 200 mg capsule (Celebrex) 200 mg PO DAILY #30 caps 05/08/25 07/20/25 Rx glycopyrrolate 1 mg tablet See Rx Instructions .Route 06/17/25 07/20/25 Rx .COMPLEX #48 tabs pyridostigmine bromide 60 mg tablet 180 mg (3 x 60 mg) PO .COMPLEX 06/22/25 07/20/25 Rx myasthenia gravis #1,620 tabs Wheelchair (Manual) #1 ea 07/20/25 07/20/25 Rx Past Med/Surg History Problem List (Updated 07/29/25 @ 00:49 by Bonnie Branch PA-C) Carotid stenosis, bilateral Ambulatory dysfunction Weakness Urinary tract infection Weakness generalized Obstructive sleep apnea Degenerative spondylolisthesis Lumbar radiculopathy Spinal stenosis of lumbar region with neurogenic claudication Spinal stenosis of lumbar region Collapse of external ear canal Bilateral tinnitus Parkinsonian features Dysfunction of left eustachian tube Sensorineural hearing loss (SNHL) of both ears Asthma PET DANDER EFFECTS ASTHMA>LAST RESCUE INHALER USED AT [facility]2017 Underweight DJD (degenerative joint disease) of knee (11/09/13) Myasthenia gravis Zenkers diverticulum Vitamin D deficiency Osteoporosis Laryngopharyngeal reflux Hypertension Diverticulosis Depression Degeneration of cervical intervertebral disc Balance problem Hyperlipidemia Enlarged lymph node in neck (Acute) Medical History History of cervical cancer Family history of reaction to anesthesia Osteoarthritis Zenker diverticulum GERD (gastroesophageal reflux disease) Myasthenia gravis Periapical abscess with facial involvement Surgical History S/P Mohs surgery for basal cell carcinoma History of total abdominal hysterectomy and bilateral salpingo-oophorectomy History of total hip arthroplasty H/O shoulder replacement History of total knee replacement History of colonoscopy History of esophagogastroduodenoscopy (EGD) History of tooth extraction History of cataract surgery History of surgery History of total abdominal hysterectomy Family History Mother Ovarian cancer Dementia Grandfather Acute myocardial infarction Sister Breast cancer Father Myocardial infarction Adverse anesthesia outcome Heart disease Brother Skin cancer (melanoma) Heart disease Sister Skin cancer (melanoma) Denies family history of Colon cancer Prostate cancer Social History (Updated 07/20/25 @ 14:11 by Soumya Angel LPN) Smoking Status: Former smoker Tobacco Type: Cigarettes Age Started Using Tobacco: 15; Age Quit Using Tobacco: 38; packs per day: 1; Second Hand Exposure: No; Do You Dip or Chew Tobacco: No; Tobacco Cessation Education Requested by Patient: No Hx Alcohol Use: No Hx Substance Use: No Preferred Language: Turkmen Communication Ability: Effective Visual Impairment: Limited Hearing Ability: Normal Adult Manager Required: No Beliefs That Will Affect Care: None marital status: Single Current Living Situation: Alone Current Living Situation Comment: Lives in a house by herself current occupational status: retired How many Children do You have: 0 Feels Safe at Home: Yes Safety Concerns: Feels Safe At This Time Childhood Exposure to Second-Hand Smoke: Yes Diet: regular caffeine: No during the past year weight has: decreased > 10 lbs Dental Care, Regularly: Yes Physical Activity Frequency: Does not Exercise Seatbelt Use: always Sunscreen Use: No Assistive Devices: Glasses and Walker Review of Systems Review of Systems: see HPI Physical Exam Physical Exam: The patient is awake, alert and oriented 3, frial, normocephalic and atraumatic, in no acute distress. Non-toxic appearing. HEENT- EOMI, mucous membranes dry. Hearing grossly intact. Heart-normal S1 and S2. No murmurs, rubs or gallops. Lungs-clear bilaterally, no respiratory distress, no accessory muscle use. Abdomen-normal bowel sounds and soft. No ascites noted. Non-tender. Extremities- no clubbing, cyanosis, or edema. Psychiatric-flat affect. Results & Data Results & Data Vital Signs (Past 12 Hours) Vital Signs Temp Pulse Pulse Pulse Resp BP BP 07/29/25 00:00 53 L 07/28/25 22:28 50 L 17 162/88 H 07/28/25 20:14 52 L 15 175/91 H 07/28/25 20:08 56 L 07/28/25 19:26 61 16 155/90 H 07/28/25 17:07 36.5 C 59 L 17 176/101 H Pulse Ox O2 Del Method 07/29/25 00:00 07/28/25 22:28 97 Room Air 07/28/25 20:14 97 Room Air 07/28/25 20:08 07/28/25 19:26 99 Room Air 07/28/25 17:07 99 Room Air Laboratory Results Abnormal lab results 07/28/25 07/28/25 Range/Units 20:21 23:00 Chloride 108 H (98-107) mmol/L BUN 25 H (6-23) mg/dl BUN/Creatinine Ratio 29.8 H (10-20) ALT 3 L (7-52) U/L Ur Specific [place] > 1.045 H (1.000-1.030) Ur Leukocyte Esterase Trace H (Negative) Urine WBC (Auto) 11-20 H (0-5) /hpf U Epithel Cells (Auto) 3-5 H (0-2) /hpf Urine Bacteria (Auto) 2+ H (None Seen) Diagnostic Findings reviewed chest CTA, neck CTA, head CTA, head ct, CXR Medications Administered ED - Rocephin 2g IV, 500 ml NSS ECG Additional Comments: sinus bradycardia rate 56 qtc 409 Code Status & VTE Plan Code Status dnr/dni VTE Prophylaxis Plan VTE Prophylaxis will be ordered: Yes Supervising Physician Co-Signing Physician Notes Attending addendum: I have physically seen this patient, have supervised the WAQAS's activities, and agree with the H&P unless as otherwise noted. Assessment and Plan: The patient is a 74-year-old female with a past medical history including myasthenia gravis, Parkinson's, GERD, hyperlipidemia, and spinal stenosis. She presents to the emergency department with a history of ongoing weakness for the past 2 years, which has more acutely worsened over the past week. Workup in the emergency department including urinalysis suggestive of UTI. She would be admitted to the [facility] service for further evaluation and treatment Urinary tract infection- Follow urine culture and sensitivity Continue ceftriaxone IV begun in the ED Status post 500 mL normal saline bolus in the ED Placed on LR at 80 mL/h x 1 L Repeat CBC with differential in the a.m. Likely contributing to generalized weakness Weakness/ambulatory dysfunction- Likely has urinary tract infection symptoms contributing to underlying myasthenia gravis Consult PT/OT Patient does have home health PT once a week Follows with neurology in outpatient setting Myasthenia gravis- Continue pyridostigmine Parkinson's- Continue carbidopa-levodopa Remaining orders and notations as noted PG Care Time/CCT Total # of Minutes Spent Total Time Spent with Patient: Total time spent is greater than 50% in coordination of care (as documented) at patient's floor/unit and/or counseling patient: Coding Level of Care Code 52426 INT INP/OBS CARE 375MIN Diagnoses Urinary tract infection N39.0 Weakness R53.1 Ambulatory dysfunction R26.2 Carotid stenosis, bilateral I65.23
[2025-07-29] MEDS: cefTRIAXone SODIUM 2,000 MG/50 ML BAG IV STA (01:10)
[2025-07-29] MEDS ORDERED: MELATONIN 3 MG TAB PO PRN (01:36)
[2025-07-29] MEDS ORDERED: ONDANSETRON INJ 2 MG/ML 2 ML VIAL IV PRN (01:36)
[2025-07-29] MEDS ORDERED: DOCUSATE SODIUM 100 MG CAP PO PRN (01:36)
[2025-07-29] MEDS: LACTATED RINGER'S 1,000 ML IV SCH (02:29)
[2025-07-29] MEDS: Patient's HEIGHT &/or WEIGHT Needed STA (04:07)
[2025-07-29 07:28] LABS: Hematocrit (blood only) 39.1 % (37.0-47.0); Hemoglobin 12.6 g/dl (12.0-16.0); Immature Granulocytes # (auto) 0.01 K/uL (0.01-0.20); Immature Granulocytes % (auto) 0.2 %; Mean Corpuscular Hemoglobin 28.4 pg (25.0-34.0); Mean Corpuscular Volume 88.3 fL (80.0-100.0); Platelet Count 318 K/uL (130-400); RDW Standard Deviation 44.8 fL (36.4-46.3); Red Blood Count 4.43 M/uL (4.20-5.40); White Blood Count 5.11 K/ul (4.8-10.8)
[2025-07-29] MEDS ORDERED: Nursing to Pharmacy Communication SCH (07:30)
[2025-07-29 07:49] LABS: Anion Gap 5.0 (3-11); Blood Urea Nitrogen 17.0 mg/dl (6-23); Calcium 8.6 mg/dl (8.6-10.3); Carbon Dioxide 28.0 mmol/L (21-32); Chloride 106.0 mmol/L (98-107); Cholesterol 223.0 mg/dl (0-200); Creatinine Clr Calc Pharmacy 48.2 ml/min; Glucose 104.0 mg/dl (70-99(Fasting)); HDL Cholesterol 74.0 mg/dl; Magnesium 1.8 mg/dl (1.7-2.4); Potassium 4.0 mmol/L (3.5-5.1); Sodium 139.0 mmol/L (136-145); Triglycerides 129.0 mg/dl (0-150)
[2025-07-29] MEDS: FAMOTIDINE 40 MG TABLET PO SCH (08:00)
[2025-07-29] MEDS: CeleBREX 200 MG CAP PO SCH (08:00)
[2025-07-29] MEDS: CARBIDOPA/LEVODOP 10/100MG TAB PO SCH (08:00)
[2025-07-29] MEDS: FLUTICASONE PROPIONATE NA SPR 16 GM BTL SCH (08:01)
[2025-07-29] MEDS: GLYCOPYRROLATE 1 MG TAB PO SCH (08:06)
[2025-07-29 08:46] LABS: Hemoglobin A1C 5.9 % (4.5-5.6)
[2025-07-29] MEDS ORDERED: GLYCOPYRROLATE 1 MG TAB PO SCH (09:00)
[2025-07-29] MEDS ORDERED: CeleBREX 200 MG CAP PO SCH (09:00)
[2025-07-29] MEDS ORDERED: CARBIDOPA/LEVODOP 10/100MG TAB PO SCH (09:00)
[2025-07-29] MEDS ORDERED: FAMOTIDINE 40 MG TABLET PO SCH (09:00)
[2025-07-29] MEDS: cefTRIAXone SODIUM 1,000 MG/50 ML BAG IV SCH (20:10)
--- NOTE | 2025-07-30 07:19 | Electrocardiogram Report ---
Test Reason : Blood Pressure : */* mmHG Vent. Rate : 56 BPM Atrial Rate : 56 BPM P-R Int : 136 ms QRS Dur : 86 ms QT Int : 424 ms P-R-T Axes : 74 83 8 degrees QTcB Int : 409 ms Poor data quality, interpretation may be adversely affected Sinus bradycardia Right atrial enlargement When compared with ECG of 06-Dec-2017 20:08, No significant change was found Confirmed by Joe Barlow ([id number]) on 07/30/2025 7:19:31 AM Referred By: Melissa Giron Confirmed By: Joe Barlow
[2025-07-30 07:26] LABS: Hematocrit (blood only) 37.1 % (37.0-47.0); Hemoglobin 12.0 g/dl (12.0-16.0); Immature Granulocytes # (auto) 0.01 K/uL (0.01-0.20); Immature Granulocytes % (auto) 0.2 %; Mean Corpuscular Hemoglobin 29.1 pg (25.0-34.0); Mean Corpuscular Volume 90.0 fL (80.0-100.0); Platelet Count 324 K/uL (130-400); RDW Standard Deviation 46.0 fL (36.4-46.3); Red Blood Count 4.12 M/uL (4.20-5.40); White Blood Count 4.96 K/ul (4.8-10.8)
[2025-07-30 07:42] LABS: Anion Gap 4.0 (3-11); Blood Urea Nitrogen 24.0 mg/dl (6-23); Calcium 8.6 mg/dl (8.6-10.3); Carbon Dioxide 29.0 mmol/L (21-32); Chloride 107.0 mmol/L (98-107); Creatinine Clr Calc Pharmacy 43.7 ml/min; Glucose 90.0 mg/dl (70-99(Fasting)); Potassium 4.0 mmol/L (3.5-5.1); Sodium 140.0 mmol/L (136-145)
--- NOTE | 2025-07-30 10:51 | Hospitalist Progress Note ---
Date of Service July 30, 2025 Assessment & Plan (1) Urinary tract infection: (2) Weakness: (3) Ambulatory dysfunction: (4) Carotid stenosis, bilateral: Plan Patient is a 74-year-old female with past medical history of myasthenia gravis, Parkinson's, GERD, HLD, spinal stenosis. Patient this had ongoing weakness for 2 years however has been acutely worsening for 1 week. She is typically able to ambulate for 20 minutes at baseline however today cannot ambulate at all. Wor kup in the ED revealed UTI. She is being admitted for IV antibiotics and to have PT/OT evals. #UTI - Likely contributing to acute worsening of weakness. UA concerning for infection. Not septic at time of admissionno leukocytosis, VSS, afebrile. Renal function stable. Coverage with Rocephin Given 500 mL NSS bolus in ED; continue fluid resuscitation with LR at 80 mL/hour x 1L Follow urine cultures Trend CBC #weakness/ambulatory dysfunction - chronic weakness for approximately 2 years thought to be secondary to neurologic conditions however acutely worsened with UTI above. -Tick panel January 2025 negative, TSH WNL, no electrolyte abnormalities. Head CT showed chronic small vessel disease. PT/OT ordered Patient has home health PT once a week set up already Continue to follow with neurology in the outpatient setting #bilateral carotid stenosis - neck CTA showed 40% right ICA stenosis and 20% left ICA stenosis. - lipid panel and a1c with am labs #congestion - reported for 6 months. CXR negative. - Flonase daily ordered #Myasthenia graviscontinue pyridostigmine #Parkinson'scontinue carbidopa levodopa #Spinal stenosiscontinue Celebrex and Tylenol VTE ppx: SCDs, low risk Dispo: Patient says she may not be able to take care of herself at home, has PT only once a week. Will benefit from PT eval here and maybe placement Admission and Anticipated Discharge Date Admission Date: July 29, 2025 Subjective patient seen and examined, says she has been getting weaker and is scared she may not be able to take care of herself at home Review of Systems Review of Systems: The patient is awake, alert and oriented 3, thin looking HEENT--PERRL, EOMI, mucous membranes and oropharynx mildly dry Neck--supple. No JVD. No bruits. Thyroid normal, trachea midline, no adenopathy. Heart--normal S1 and S2. No murmurs, rubs or gallops. Lungs--clear bilaterally, no respiratory distress, no accessory muscle use. Abdomen--normal bowel sounds and soft. Extremities--no cyanosis or clubbing. No edema. Dermatologic--normal skin turgor, normal color, no abnormal lymph nodes, no rash. Neurologic--cranial nerves II through XII grossly intact. Rheumatologic--normal range of motion. Psychiatric--normal affect. Results & Data Results & Data Vital Signs (Past 12 Hours) Vital Signs Temp Pulse Resp BP Pulse Ox O2 Del Method 07/30/25 07:46 98.1 F 52 L 16 134/77 96 Room Air PG Care Time/CCT Total # of Minutes Spent Total Time Spent with Patient: Total time spent is greater than 50% in coordination of care (as documented) at patient's floor/unit and/or counseling patient: Coding Level of Care Code 15687 SUB INP/OBS CARE 2/35MIN Diagnoses Urinary tract infection N30.00 Hematuria presence: without hematuria Urinary tract infection type: acute cystitis Weakness R53.1 Ambulatory dysfunction R26.2 Carotid stenosis, bilateral I65.23 Time Spent (min) 35 (1) Urinary tract infection Hematuria presence: without hematuria Urinary tract infection type: acute cystitis Qualified Code(s): N30.00 - Acute cystitis without hematuria
[2025-07-31 07:14] LABS: Hematocrit (blood only) 35.8 % (37.0-47.0); Hemoglobin 12.1 g/dl (12.0-16.0); Mean Corpuscular Hemoglobin 30.1 pg (25.0-34.0); Mean Corpuscular Volume 89.1 fL (80.0-100.0); Platelet Count 298 K/uL (130-400); RDW Standard Deviation 45.5 fL (36.4-46.3); Red Blood Count 4.02 M/uL (4.20-5.40); White Blood Count 4.73 K/ul (4.8-10.8)
[2025-07-31 07:44] LABS: Anion Gap 3.0 (3-11); Blood Urea Nitrogen 26.0 mg/dl (6-23); Calcium 8.4 mg/dl (8.6-10.3); Carbon Dioxide 28.0 mmol/L (21-32); Chloride 109.0 mmol/L (98-107); Creatinine Clr Calc Pharmacy 41.5 ml/min; Glucose 88.0 mg/dl (70-99(Fasting)); Potassium 3.9 mmol/L (3.5-5.1); Sodium 140.0 mmol/L (136-145)
--- NOTE | 2025-07-31 12:59 | Hospitalist Progress Note ---
Date of Service July 31, 2025 Assessment & Plan (1) Urinary tract infection: (2) Weakness: (3) Ambulatory dysfunction: (4) Carotid stenosis, bilateral: Plan Patient is a 74-year-old female with past medical history of myasthenia gravis, Parkinson's, GERD, HLD, spinal stenosis. Patient this had ongoing weakness for 2 years however has been acutely worsening for 1 week. She is typically able to ambulate for 20 minutes at baseline however today cannot ambulate at all. Wor kup in the ED revealed UTI. She is being admitted for IV antibiotics and to have PT/OT evals. #UTI - Likely contributing to acute worsening of weakness. UA concerning for infection. Not septic at time of admissionno leukocytosis, VSS, afebrile. Renal function stable. Coverage with Rocephin day 3/5 Urine culture demonstrates high counts of 3 different pathogens no sensitivities sent Clinically she is stabilizing improving, WBC trending to normal. - Will continue with 5 days of Rocephin as above, PT and OT assessments pending now. She will likely finish the Rocephin during hospitalization #weakness/ambulatory dysfunction - chronic weakness for approximately 2 years thought to be secondary to neurologic conditions however acutely worsened with UTI above. - Tick panel January 2025 negative, TSH WNL, no electrolyte abnormalities. Head CT showed chronic small vessel disease. PT/OT ordered, ongoing assessments Patient has home health PT once a week set up already, I suspect given her subacute on chronic decline that SNF would be appropriate at this time Continue to follow with neurology in the outpatient setting #bilateral carotid stenosis - neck CTA showed 40% right ICA stenosis and 20% left ICA stenosis. - lipid panel and a1c with am labs #congestion - reported for 6 months. CXR negative. - Flonase daily ordered - She has tried Mucinex, RT consultation, consider swallow evaluation in the outpatient setting, could also be an atypical presentation of GERD #Myasthenia graviscontinue pyridostigmine #Parkinson'scontinue carbidopa levodopa #Spinal stenosiscontinue Celebrex and Tylenol VTE ppx: SCDs, low risk Dispo: Patient says she may not be able to take care of herself at home, has PT only once a week. Will benefit from PT eval here and maybe placement Admission and Anticipated Discharge Date Admission Date: July 29, 2025 Subjective Doing okay this morning, feels most of her general symptoms have resolved at this point. She is still expressing concern about her level of strength and inability to get around. We discussed PT and OT consult. What their assessments mean and how that will dictate discharge planning. Her preference would be home with home health but understands that half-way may be appropriate or necessary for the short-term. I reaffirmed that I think her rehab potential is very good and if we will significantly help her cope with getting home safely. Otherwise no new events or concerns per nursing or patient. No problems with eliminations no problems with oral intake. She also endorses a long-term 6-month history of thickened phlegm that she has trouble clearing. She has tried Mucinex and other anhl-hbj-[id number] remedies with no success. We discussed respiratory therapy consultation for different options. Physical Exam Constitutional: Awake, alert, appropriate, oriented. Eyes: Sclera clear Respiratory: Clear to auscultation bilaterally with good air movement throughout Cardiovascular: Regular rate and rhythm no murmurs rubs or gallops Gastrointestinal (Abdomen): Normal bowel sounds Musculoskeletal: No edema Skin: No rash, pallor or discoloration Results & Data Results & Data Vital Signs (Past 12 Hours) Vital Signs Temp Pulse Resp BP Pulse Ox O2 Del Method 07/31/25 06:54 36.5 C 53 L 16 158/98 H 97 Room Air Laboratory Results 07/29/25 00:56 Aerobic Blood Culture - Preliminary Blood No growth in Aerobic bottle after 48 hours. Anaerobic Blood Culture - Preliminary No growth in Anaerobic bottle after 48 hours. 07/29/25 00:48 Aerobic Blood Culture - Preliminary Blood No growth in Aerobic bottle after 48 hours. Anaerobic Blood Culture - Preliminary No growth in Anaerobic bottle after 48 hours. 07/31/25 06:34 WBC 4.73 L RBC 4.02 L Hgb 12.1 Hct 35.8 L MCV 89.1 MCH 30.1 MCHC 33.8 RDW Std Deviation 45.5 RDW Coeff of Irvin 13.8 Plt Count 298 MPV 9.7 Sodium 140 Potassium 3.9 Chloride 109 H Carbon Dioxide 28 Anion Gap 3 BUN 26 H Creatinine 0.79 Est Cr Clr Drug Dosing 41.5 eGFR 77.47 BUN/Creatinine Ratio 32.9 H Glucose 88 Calcium 8.4 L PG Care Time/CCT Total # of Minutes Spent Total Time Spent with Patient: Total time spent is greater than 50% in coordination of care (as documented) at patient's floor/unit and/or counseling patient: Coding Level of Care Code 85012 SUB INP/OBS CARE 2/35MIN Diagnoses Urinary tract infection N30.00 Hematuria presence: without hematuria Urinary tract infection type: acute cystitis Weakness R53.1 Ambulatory dysfunction R26.2 Carotid stenosis, bilateral I65.23 (1) Urinary tract infection Hematuria presence: without hematuria Urinary tract infection type: acute cystitis Qualified Code(s): N30.00 - Acute cystitis without hematuria
--- NOTE | 2025-08-01 14:58 | Hospitalist Progress Note ---
Date of Service August 01, 2025 Assessment & Plan (1) Urinary tract infection: (2) Weakness: (3) Ambulatory dysfunction: (4) Carotid stenosis, bilateral: Plan Patient is a 74-year-old female with past medical history of myasthenia gravis, Parkinson's, GERD, HLD, spinal stenosis. Patient this had ongoing weakness for 2 years however has been acutely worsening for 1 week. She is typically able to ambulate for 20 minutes at baseline however today cannot ambulate at all. Wor kup in the ED revealed UTI. She is being admitted for IV antibiotics and to have PT/OT evals. #UTI - Likely contributing to acute worsening of weakness. UA concerning for infection. Not septic at time of admissionno leukocytosis, VSS, afebrile. Renal function stable. Coverage with Rocephin day 4 Initial urine culture demonstrates high counts of 3 different pathogens no sensitivities sent, e facalis on repeat - Switch to Macrobid as it is likely to cover the most typical pathogens. #weakness/ambulatory dysfunction - chronic weakness for approximately 2 years thought to be secondary to neurologic conditions however acutely worsened with UTI above. - Tick panel January 2025 negative, TSH WNL, no electrolyte abnormalities. Head CT showed chronic small vessel disease. PT/OT ordered, plan for acute rehab placement Patient has home health PT once a week set up already, I suspect given her subacute on chronic decline that SNF would be appropriate at this time Continue to follow with neurology in the outpatient setting #bilateral carotid stenosis - neck CTA showed 40% right ICA stenosis and 20% left ICA stenosis. - lipid panel and a1c with am labs #congestion - reported for 6 months. CXR negative. - Flonase daily ordered - She has tried Mucinex, RT consultation, consider swallow evaluation in the outpatient setting, could also be an atypical presentation of GERD #Myasthenia graviscontinue pyridostigmine #Parkinson'scontinue carbidopa levodopa #Spinal stenosiscontinue Celebrex and Tylenol VTE ppx: SCDs, low risk Dispo: Appropriate for acute rehab when bed available Admission and Anticipated Discharge Date Admission Date: July 29, 2025 Subjective Doing pretty well this morning. Did meet with PT and OT. Notes that her weakness is substantial to suspected. In general discussion with PT indicates likely would benefit from acute rehab placement case management to work through this. Otherwise she is having no problems with oral intake or elimination. Her urine culture repeat showed a small amount of Enterococcus faecalis. Will transition from Rocephin to Macrobid. Otherwise initial culture was negative. Physical Exam Constitutional: Awake, alert, appropriate, oriented. Eyes: Sclera clear Respiratory: Clear to auscultation bilaterally with good air movement throughout Cardiovascular: Regular rate and rhythm no murmurs rubs or gallops Gastrointestinal (Abdomen): Normal bowel sounds Musculoskeletal: No edema Skin: No rash, pallor or discoloration Results & Data Results & Data Vital Signs (Past 12 Hours) Vital Signs Temp Pulse Resp BP Pulse Ox O2 Del Method 08/01/25 08:06 Room Air 08/01/25 07:28 36.6 C 51 L 16 142/76 H 95 Room Air Laboratory Results 07/31/25 Unknown Urine Culture - Preliminary Urine,Clean Catch Enterococcus faecium PG Care Time/CCT Total # of Minutes Spent Total Time Spent with Patient: Total time spent is greater than 50% in coordination of care (as documented) at patient's floor/unit and/or counseling patient: Coding Level of Care Code 79600 SUB INP/OBS CARE 2/35MIN Diagnoses Urinary tract infection N30.00 Hematuria presence: without hematuria Urinary tract infection type: acute cystitis Weakness R53.1 Ambulatory dysfunction R26.2 Carotid stenosis, bilateral I65.23 (1) Urinary tract infection Hematuria presence: without hematuria Urinary tract infection type: acute cystitis Qualified Code(s): N30.00 - Acute cystitis without hematuria
[2025-08-01] MEDS: NITROFURANTOIN MONOHYDRATE 100 MG CAP PO SCH (21:54)
[2025-08-01 23:04] VITALS: PULSE 48; TEMP 98.1
[2025-08-02] MEDS: ACETAMINOPHEN 325 MG TAB PO PRN (06:23)
[2025-08-02 07:38] VITALS: BP 122/67; RESP 16; O2SAT 95
[2025-08-02 08:26] LABS: Hematocrit (blood only) 36.2 % (37.0-47.0); Hemoglobin 12.2 g/dl (12.0-16.0); Immature Granulocytes # (auto) 0.01 K/uL (0.01-0.20); Immature Granulocytes % (auto) 0.2 %; Mean Corpuscular Hemoglobin 29.7 pg (25.0-34.0); Mean Corpuscular Volume 88.1 fL (80.0-100.0); Platelet Count 309 K/uL (130-400); RDW Standard Deviation 44.5 fL (36.4-46.3); Red Blood Count 4.11 M/uL (4.20-5.40); White Blood Count 4.67 K/ul (4.8-10.8)
[2025-08-02 08:50] LABS: Anion Gap 2 (3-11); Blood Urea Nitrogen 22 mg/dl (6-23); Calcium 8.6 mg/dl (8.6-10.3); Carbon Dioxide 28 mmol/L (21-32); Chloride 108 mmol/L (98-107); Creatinine Clr Calc Pharmacy 50.4 ml/min; Glucose 94 mg/dl (70-99(Fasting)); Potassium 4.2 mmol/L (3.5-5.1); Sodium 138 mmol/L (136-145)
--- NOTE | 2025-08-02 10:50 | Discharge Summary ---
Discharge Summary Date of Service August 02, 2025 Principal Dx & Hospital Course #1 = Principal Diagnosis (1) Urinary tract infection: (2) Weakness: (3) Ambulatory dysfunction: (4) Carotid stenosis, bilateral: Plan Patient is a 74-year-old female with past medical history of myasthenia gravis, Parkinson's, GERD, HLD, spinal stenosis. Patient this had ongoing weakness for 2 years however has been acutely worsening for 1 week. She is typically able to ambulate for 20 minutes at baseline however today cannot ambulate at all. Workup in the ED revealed UTI. She is being admitted for IV antibiotics and to have PT/OT evals. #UTI - Likely contributing to acute worsening of weakness. UA concerning for infection. Not septic at time of admissionno leukocytosis, VSS, afebrile. Renal function stable. Coverage with Rocephin day 4 Initial urine culture demonstrates high counts of 3 different pathogens no sensitivities sent, e facalis on repeat - Switch to Macrobid as it is likely to cover the most typical pathogens. - plan for discharge on Macrobid until 08/04/2025. She should have a repeat urine culture to ensure clearance #weakness/ambulatory dysfunction #history of myasthenia gravis - Deconditioning secondary to current course of illness complicated by her history of myasthenia gravis as noted below. - chronic weakness for approximately 2 years thought to be secondary to neurologic conditions however acutely worsened with UTI above. - Tick panel January 2025 negative, TSH WNL, no electrolyte abnormalities. Head CT showed chronic small vessel disease. PT/OT ordered, plan for acute rehab placement - placement as [facility] for rehab. I think she will be an excellent candidate. Expect she will follow a somewhat slow course but think there is excellent rehab potential overall Continue to follow with neurology in the outpatient setting #bilateral carotid stenosis - neck CTA showed 40% right ICA stenosis and 20% left ICA stenosis. - lipid panel and a1c with am labs #Parkinson'scontinue carbidopa levodopa #Spinal stenosiscontinue Celebrex and Tylenol Notes For Next Care Provider recheck urine culture to assure clearance of typical pathogens Admission HPI Per Admitting Provider Patient is a 74-year-old female with past medical history of myasthenia gravis, Parkinson's, GERD, HLD, spinal stenosis. Patient this had ongoing weakness for 2 years however has been acutely worsening for 1 week. She is typically able to ambulate for 20 minutes at baseline however today cannot ambulate at all. Workup in the ED revealed UTI. She is being admitted for IV antibiotics and to have PT/OT evals. Patient seen at bedside with her nephew and his girlfriend present. She stated she has been weak for the past 2 years and this has been followed by neurology and her PCP felt to be secondary to the myasthenia gravis and Parkinson's. The past week it has been acutely worsening as she is typically able to ambulate for 20 minutes at baseline however now was unable to. She uses a rollator to get around her small house and her goal is to return home. She stated she fell several days ago however denies any other recent falls. She has never had a UTI before and denies any dysuria, hematuria, difficulty urinating, abdominal pain, fevers, chills, chest pain, shortness of breath. She denies any nicotine or alcohol use. Denies any allergies to antibiotics. She took all of her home medications today. She does not use any CPAP for her diagnosis of NINA. She wishes to be DNR/DNI. Patient was greatly concerned that she has had a lot of phlegm in her throat and her nose for about 6 months, she stated nothing has worked in the past but she is willing to try Flonase. She has home health PT once a week. Discharge Exam Constitutional awake, alert, appropriate in conversational Eyes sclera clear Respiratory clear to auscultation with excellent air movement throughout Cardiovascular regular rate and rhythm Gastrointestinal (Abdomen) normal bowel sounds, nontender nondistended Musculoskeletal no edema Skin no rash, pallor or discoloration Neurologic no focal deficits, symmetric but weak and movement throughout. Discharge Plan Discharge Items Patient Disposition: Transfer Half-Way Fac Reason For Visit: UTI, WEAKNESS, AMBULATORY DYSFUNCTION Discharge Diagnosis: UTI Deconditioning Condition on Discharge: Fair Activity: Per Instructions section Activity Comment: Per PT and OT Non-emergency contact: Primary Care Provider Call non-emergency contact if: you have any medication questions, your symptoms worsen and you have a fever Follow-up/Referrals: Melissa Giron MD [Primary Care Provider] - Diet: Regular Addtl Attending Provider Instructions: Complete the full course of the antibiotic (Nitrofurantoin) If you develop recurrent or new symptoms please notify your PCP or return to urgent care or the ED Resume your prior medicaitons as prescribed Pending Studies at Discharge: No Stand-Alone Forms: My [facility] Skilled Items Patient informed of condition?: Yes DNR: Yes Discharge Level of Care: Acute rehab Communicable Disease: No Discharge Prognosis: Stable Lines: None Urinary Catheter: No Medications and DC Order Prescriptions: New nitrofurantoin monohyd/m-cryst 100 mg Capsule 100 mg PO BID 3 Days Qty: 6 0RF Continued acetaminophen [Tylenol Extra Strength] 500 mg tablet 500 mg PO Q6H PRN carbidopa-levodopa 10-100 mg tablet 1 tab PO TID Qty: 270 3RF guaifenesin [Mucinex] PO PRN PRN famotidine 40 mg tablet 40 mg PO BID Qty: 60 5RF celecoxib [Celebrex] 200 mg capsule 200 mg PO DAILY Qty: 30 2RF glycopyrrolate 1 mg tablet See Rx Instructions .ROUTE .COMPLEX Qty: 48 5RF Dose Instruction: TAKE 1 TABLET BY MOUTH 4 TIMES A WEEK Rx Instructions: TAKE 1 TABLET BY MOUTH 4 TIMES A WEEK pyridostigmine bromide 60 mg tablet 180 mg PO .COMPLEX Qty: 1620 3RF Rx Instructions: 180 mg PO TAKE 3 TABLETS EVERY 4 HOURS DIRECTED; calcium PO BID Prolia 60 mg/mL syringe 60 mg SQ .COMPLEX Rx Instructions: 60 mg subcut EVERY 6 MONTHS; cholecalciferol (vitamin D3) 125 mcg (5,000 unit) tablet 5,000 units PO .COMPLEX Rx Instructions: 5,000 units PO 4 TIMES A WEEK; ketoconazole 2 % shampoo 1 applic topical .COMPLEX Qty: 120 4RF Rx Instructions: Wash scalp 2 times weekly. Let sit for 3-5 minutes prior to rinsing.; (DME) Wheelchair (Manual) Device See Rx Instructions .Route Qty: 1 0RF Rx Instructions: As directed G70.00, M48.062 (DME) miscellaneous medical supply Misc See Rx Instructions .ROUTE .MEDSUPPLY Qty: 3 0RF Rx Instructions: custom front closure bra G70.00, M19.049 (DME) Wheelchair (Manual) Device See Rx Instructions .Route Qty: 1 0RF Rx Instructions: As directed R29.818, G70.00 Discharge Orders: Discharge Order (Routine); Ordered 08/02/25 Ordered By: Prashanth Wang/Other Patient Handouts: ED Cystitis Female Adult Admission Data Admit Date/Time: 07/29/25 09:22 Attending Provider: Prashanth Farrar Admit Provider: Christopher Zabala Primary Care Provider: Melissa Giron Other Providers: Farooq Flores; [place] Stay Data Consultations 07/29/25 00:43 ED Decision to Admit Stat Diagnostic Imagining Performed 07/28/25 19:28 CT head/brain wo con Stat CTA head w con [CT angio head w con] Stat CTA neck with con [CT angio neck with con] Stat 07/28/25 20:22 CT angio chest PE protocol Stat Pending Results Patient Have Any Pending Studies at Discharge: No Discharge Instructions Given to Patient (Per Discharging Provider) Complete the full course of the antibiotic (Nitrofurantoin) If you develop recurrent or new symptoms please notify your PCP or return to urgent care or the ED Resume your prior medicaitons as prescribed Total Time Total Time Spent Total Time Spent (In Minutes): 44 Minutes spent in the discharge coordination of arrangements, medication management and prescription follow-up. Discharge documentation and planning through case management Coding Level of Care Code 98425 INP/OBS DISCH >30 MIN Diagnoses Urinary tract infection N30.00 Hematuria presence: without hematuria Urinary tract infection type: acute cystitis Weakness R53.1 Ambulatory dysfunction R26.2 Carotid stenosis, bilateral I65.23
== END 2025-08-02 13:30 | DRG 690 ==
LOC: ED 16:59 → 3N 16:59 → SUATTDRO 07-29 00:44 → 3N 07-29 01:39 → SUATTDRO 07-29 09:22